=== PATIENT | male | born 1930 | race Caucasian/White ===

== ENCOUNTER 2017-07-31 11:44 | Inpatient (IN) | payer MEDICARE ==
[~2017-07-31] VITALS: Ht 172.7 cm; Wt 62.7 kg
--- NOTE | 2017-07-31 10:15 | NUR ---
Admission Note with Justification for Admission to [facility] Patient admitted to [facility] for protective oversight for emergency stabilization of acute psychiatric crisis. Pt admitted from: Hospital Mode of arrival: EMS Accompanied By: Family/EMS staff Precipitating behaviors that initiated intake and admission: [place]. pulled gun on . police involved Description of failure of out patient attempts at stabilization in previous setting list behavior and medication trials: Behaviors and assessment findings upon admission: restless. impulsive. compliant Plan: Admit for protective oversight for adjustment and stabilization of medications, behaviors and mood. Intense treatment regimen including groups, medication adjustments, therapy, consistent regimen for ADL's, self care, and sleep hygiene. Daily monitoring by Inpatient staff, Psychiatry, and Medical Physician.
[2017-07-31] MEDS ORDERED: METHYL SALICYLATE/MENTHOL TOPICAL OINTMENT 29GM TUBE. TP PRN (14:00)
[2017-07-31] MEDS ORDERED: MAG HYDROX/AL HYDROX/SIMETH 30 ML ORAL.SUSP PO PRN (14:00)
[2017-07-31] MEDS ORDERED: ACETAMINOPHEN 325 MG TABLET PO PRN (14:00)
[2017-07-31] MEDS ORDERED: MAGNESIUM HYDROXIDE 2,400 MG/30 ML ORAL.SUSP. PO PRN (14:00)
[2017-07-31 15:21] LABS: BASO % 0 % (0-3); EOS % 0 % (0-3); HEMATOCRIT 40.5 % (39.0-53.0); HEMOGLOBIN 13.5 g/dL (13.0-17.5); LYMPH # 0.4 x10^3/uL (1.0-4.8); LYMPH % 5 % (24-48); MEAN CORPUSCULAR HEMOGLOBIN 28 pg (25-35); MEAN CORPUSCULAR HGB CONC 33 g/dL (31-37); MEAN CORPUSCULAR VOLUME 84 fL (79-100); MONO # 0.4 x10^3/uL (0.0-1.1); MONO % 5 % (0-9); NEUT % 90 % (31-73); PLATELET COUNT 273 x10^3/uL (140-400); RED BLOOD COUNT 4.82 x10^6/uL (4.30-5.70); RED CELL DISTRIBUTION WIDTH 15.7 % (11.5-14.5); WHITE BLOOD COUNT 7.8 x10^3/uL (4.0-11.0)
[2017-07-31 15:28] LABS: ALBUMIN 3.4 g/dL (3.4-5.0); ALBUMIN/GLOBULIN RATIO 0.9 (1.0-1.7); CALCIUM 8.4 mg/dL (8.5-10.1); CREATININE 1.1 mg/dL (0.7-1.3); GFR 63.8; POTASSIUM 3.3 mmol/L (3.5-5.1); TOTAL BILIRUBIN 2.1 mg/dL (0.2-1.0); TOTAL PROTEIN 7.1 g/dL (6.4-8.2)
[2017-07-31 15:40] LABS: BILIRUBIN,URINE NEG (NEG); CLARITY,URINE CLEAR; COLOR,URINE YELLOW; GLUCOSE,URINE NEG (NEG); NITRITE,URINE NEG (NEG); UROBILINOGEN,URINE 0.2 mg/dL (0.2 mg/dL)
[2017-07-31 15:41] LABS: BACTERIA,URINE 0 /HPF (0-FEW); RBC,URINE RARE /HPF (0-2); SQUAMOUS EPITHELIAL CELL,UR OCC /LPF; WBC,URINE OCC /HPF (0-4)
--- NOTE | 2017-07-31 16:06 | EKG ---
[address] [address] Test Date: 2017-07-31 Test Time: 16:01:19 Pat Name: KVNG CLAY Department: Room: [address] [place] [address] Gender: M Reservations Specialist: : [id number] Requested By: GABRIEL BAI Order Number: [id number] Reading MD: Gian Koenig Measurements Intervals [place] Rate: 67 P: 90 SC: 168 QRS: 82 QRSD: 140 T: 74 QT: 436 QTc: 464 Interpretive Statements SINUS RHYTHM NON SPECIFIC INTRAVENTRICULAR BLOCK QRS(T) CONTOUR ABNORMALITY CONSIDER ANTEROSEPTAL MYOCARDIAL DAMAGE ABNORMAL ECG Electronically Signed On 08-09-2017 12:32:58 CDT by Gian Koenig
[2017-07-31] MEDS ORDERED: MAGN400T3 PO (16:08)
[2017-07-31] MEDS ORDERED: CARB1TAB2 PO (16:08)
[2017-07-31] MEDS ORDERED: ALPR0.25 PO (16:08)
[2017-07-31] MEDS ORDERED: CITA20TA9 PO (16:08)
[2017-07-31] MEDS ORDERED: carbidopa/levodopa PO (16:08)
[2017-07-31] MEDS ORDERED: QUET25TA5 PO (16:08)
[2017-07-31 16:22] VITALS: BP 152/63
[2017-07-31] MEDS ORDERED: ALPRAZolam 0.25 MG TABLET PO PRN (16:30)
--- NOTE | 2017-07-31 18:35 | NUR ---
pt up in wc for meal. unsteady on feet when ambulating with staff. has been drowsy.
[2017-07-31] MEDS: CARBIDOPA/LEVODOPA CR 50/200MG TABLET.SA PO SCH (22:09)
[2017-07-31] MEDS: QUEtiapine 25 MG TABLET. PO SCH (22:09)
--- NOTE | 2017-08-01 01:46 | NUR ---
Behavior Intervention Response and Plan: BIRP Note: Behavior: Assumed Care of patient, patient located in Day Room at shift change. Patient exhibited the following behavior Disorganized, Irritable, Drowsy. Brief assessment on rounds of vital signs, medication needs, lab studies, and pain. Treatment plan problems 1-4. Intervention: Patient assessed and the following interventions initiated safety checks 15 Minute Checks Personal Alarm in place , Medications , Nutrition. Response: After interactions and interventions patient responded in the following manner, Disorganized , Withdrawn ,Drowsy. Continue to assess behaviors and condition will continue to monitor throughout the shift as needed. Patient educated on ADL's, and hand hygiene. Plan: Continue to monitor Master Treatment Plan for patient's progress toward short term goals of Decreased Agitation, Decreased Anxiety, manager terminal goals to return to previous living setting vs placement. Continue to assess patient for changes in above assessment. Monitor for medication needs, pain, and safety concerns. Hourly rounding performed to ensure safe environment.
[2017-08-01 05:39] VITALS: BP 145/87
[2017-08-01] MEDS: CARBIDOPA/LEVODOPA CR 50/200MG TABLET.SA PO SCH ×3 (08:48→21:11)
[2017-08-01] MEDS: CITALOPRAM 10 MG TABLET. PO SCH (08:50)
[2017-08-01] MEDS: MAGNESIUM OXIDE 400 MG TABLET PO SCH (08:50)
--- NOTE | 2017-08-01 09:25 | PDOC ---
Exam Note: Elmo Note: Please also refer to the separate dictated note~for this date of service dictated separately.~Patient seen individually. Discussed the patient with Nursing staff reviewed the chart.~Reviewed interim history and current functioning. Reviewed vital signs,~Labs/ Radiology~and current medications noted below. Continue current treatment with the changes noted in the dictated addendum note. This is a late entry for July 31, 2017 Assessment: Vital Signs: VS - Last 72 Hours, by Label Date Time Temp Pulse Resp B/P (MAP) Pulse Ox O2 Delivery O2 Flow Rate FiO2 08/01/17 05:39 97.7 68 16 145/87 (106) 100 07/31/17 16:22 97.4 62 18 152/63 (92) 98 Vital Signs Date Time Temp Pulse Resp B/P (MAP) Pulse Ox O2 Delivery O2 Flow Rate FiO2 08/01/17 05:39 97.7 68 16 145/87 (106) 100 I&O Intake and Output 08/01/17 07:00 Intake Total 600 ml Balance 600 ml Intake Oral 600 ml # Bowel Movements 1 Labs: Laboratory Tests Test 07/31/17 15:00 White Blood Count 7.8 x10^3/uL (4.0-11.0) Red Blood Count 4.82 x10^6/uL (4.30-5.70) Hemoglobin 13.5 g/dL (13.0-17.5) Hematocrit 40.5 % (39.0-53.0) Mean Corpuscular Volume 84 fL (79-100) Mean Corpuscular Hemoglobin 28 pg (25-35) Mean Corpuscular Hemoglobin Concent 33 g/dL (31-37) Red Cell Distribution Width 15.7 % (11.5-14.5) H Platelet Count 273 x10^3/uL (140-400) Neutrophils (%) (Auto) 90 % (31-73) H Lymphocytes (%) (Auto) 5 % (24-48) L Monocytes (%) (Auto) 5 % (0-9) Eosinophils (%) (Auto) 0 % (0-3) Basophils (%) (Auto) 0 % (0-3) Neutrophils # (Auto) 7.0 x10^3uL (1.8-7.7) Lymphocytes # (Auto) 0.4 x10^3/uL (1.0-4.8) L Monocytes # (Auto) 0.4 x10^3/uL (0.0-1.1) Eosinophils # (Auto) 0.0 x10^3/uL (0.0-0.7) Basophils # (Auto) 0.0 x10^3/uL (0.0-0.2) Urine Collection Type Unknown Urine Color Yellow Urine Clarity Clear Urine pH 7.0 Urine Specific [place] 1.010 Urine Protein Neg (NEG-TRACE) Urine Glucose (UA) Neg mg/dL (NEG) Urine Ketones (Stick) Neg mg/dL (NEG) Urine Blood Trace (NEG) Urine Nitrite Neg (NEG) Urine Bilirubin Neg (NEG) Urine Urobilinogen Dipstick 0.2 mg/dL (0.2 mg/dL) Urine Leukocyte Esterase Neg (NEG) Urine RBC Rare /HPF (0-2) Urine WBC Occ /HPF (0-4) Urine Squamous Epithelial Cells Occ /LPF Urine Bacteria 0 /HPF (0-FEW) Sodium Level 135 mmol/L (136-145) L Potassium Level 3.3 mmol/L (3.5-5.1) L Chloride Level 99 mmol/L (98-107) Carbon Dioxide Level 27 mmol/L (21-32) Anion Gap 9 (6-14) Blood Urea Nitrogen 24 mg/dL (8-26) Creatinine 1.1 mg/dL (0.7-1.3) Estimated GFR (Cockcroft-Gault) 63.8 BUN/Creatinine Ratio 22 (6-20) H Glucose Level 107 mg/dL (70-99) H Calcium Level 8.4 mg/dL (8.5-10.1) L Magnesium Level 2.0 mg/dL (1.8-2.4) Total Bilirubin 2.1 mg/dL (0.2-1.0) H Aspartate Amino Transferase (AST) 13 U/L (15-37) L Alanine Aminotransferase (ALT) 9 U/L (16-63) L Alkaline Phosphatase 76 U/L (46-116) Total Protein 7.1 g/dL (6.4-8.2) Albumin 3.4 g/dL (3.4-5.0) Albumin/Globulin Ratio 0.9 (1.0-1.7) L Current Medications: Meds: Current Medications Acetaminophen (Tylenol) 650 mg PRN Q6HRS PRN PO PAIN / TEMP; Start 07/31/17 at 14:00 Multi-Ingredient Ointment (Analgesic [place]) 1 avila PRN QID PRN TP MUSCLE PAIN; Start 07/31/17 at 14:00 Al Hydroxide/Mg Hydroxide (Mylanta Plus Xs) 15 ml PRN AFTMEALHC PRN PO DYSPEPSIA; Start 07/31/17 at 14:00 Magnesium Hydroxide (Milk Of Magnesia) 2,400 mg PRN QHS PRN PO CONSTIPATION; Start 07/31/17 at 14:00 Carbidopa/Levodopa (Sinemet 25/100) 1 tab PRN QHS PRN PO dystonia; Start at 16:15 Citalopram Hydrobromide (CeleXA) 30 mg DAILY PO Last administered on 08/01/17at 08:50; Start 08/01/17 at 09:00 Alprazolam (Xanax) 0.25 mg PRN QID PRN PO ANXIETY / AGITATION; Start 07/31/17 at 16:30 Magnesium Oxide (Magnesium Oxide) 400 mg DAILY PO Last administered on at 08:50; Start 08/01/17 at 09:00 Quetiapine Fumarate (SEROquel) 25 mg QHS PO Last administered on 07/31/17at 22:09 ; Start 07/31/17 at 21:00 Carbidopa/Levodopa (Sinemet Cr) 2.5 tab.sa TID PO Last administered on at 08:48; Start 07/31/17 at 21:00 Olanzapine (ZyPREXA ZYDIS) 2.5 mg PRN Q2HR PRN PO PSYCHOSIS; Start 07/31/17 at 16:30 Active Scripts Active Reported Magnesium Oxide 400 Mg Tablet 400 Mg PO DAILY Sinemet 25-100 Mg Tablet (Carbidopa/Levodopa) 1 Each Tablet 1 Tab PO PRN QHS PRN Seroquel (Quetiapine Fumarate) 25 Mg Tablet 25 Mg PO HS Xanax (Alprazolam) 0.25 Mg Tablet 0.25 Mg PO PRN QID PRN Celexa (Citalopram Hydrobromide) 20 Mg Tablet 30 Mg PO DAILY [carbidopa/levodopa] 50-200 Mg PO TID I have reviewed the current psychotropics carefully including drug interactions. Risk benefit ratio favors no change other than as noted in my dictated progress note. 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
[2017-08-01 10:07] LABS: THYROID STIM HORMONE (TSH) 3.23 uIU/mL (0.358-3.740)
--- NOTE | 2017-08-01 10:51 | NUR ---
Behavior Intervention Response and Plan: BIRP Note: Behavior: Assumed Care of patient, patient located in Dining Room at shift change. Patient exhibited the following behavior Calm, Withdrawn, Compliant. Brief assessment on rounds of vital signs, medication needs, lab studies, and pain. Treatment plan problems . Intervention: Patient assessed and the following interventions initiated safety checks 15 Minute Checks Cognitive Assessment , Head to toe Assessment , Medications. Response: After interactions and interventions patient responded in the following manner, Disorganized , Calm ,Compliant. Continue to assess behaviors and condition will continue to monitor throughout the shift as needed. Patient educated on ADL's, and hand hygiene. Plan: Continue to monitor Master Treatment Plan for patient's progress toward short term goals of Decreased Agitation, Decreased Aggression, care home goals to return to previous living setting vs placement. Continue to assess patient for changes in above assessment. Monitor for medication needs, pain, and safety concerns. Hourly rounding performed to ensure safe environment.
[2017-08-01 12:11] LABS: THYROXINE 6.7 ug/dL (4.5-12.0)
[2017-08-01 16:33] VITALS: BP 90/62
--- NOTE | 2017-08-01 18:53 | NUR ---
pt up with walker today. more steady on his feet. more alert. here to visit. visit went well. does not remember what brought him here. compliant with meds and cares.
--- NOTE | 2017-08-01 20:23 | PDOC ---
Exam Note: Elmo Note: Late entry for date of service July 31, 2017. Please also refer to the separate dictated note~for this date of service dictated separately.~Patient seen individually. Discussed the patient with Nursing staff reviewed the chart.~ Reviewed interim history and current functioning. Reviewed vital signs,~Labs/ Radiology~and current medications noted below. Continue current treatment with the changes noted in the dictated addendum note Assessment: Vital Signs: VS - Last 72 Hours, by Label Date Time Temp Pulse Resp B/P (MAP) Pulse Ox O2 Delivery O2 Flow Rate FiO2 08/01/17 16:33 98.1 66 18 90/62 (71) 97 08/01/17 05:39 97.7 68 16 145/87 (106) 100 07/31/17 16:22 97.4 62 18 152/63 (92) 98 Vital Signs Date Time Temp Pulse Resp B/P (MAP) Pulse Ox O2 Delivery O2 Flow Rate FiO2 08/01/17 16:33 98.1 66 18 90/62 (71) 97 I&O Intake and Output 08/01/17 07:00 Intake Total 600 ml Balance 600 ml Intake Oral 600 ml # Bowel Movements 1 Current Medications: Meds: Current Medications Acetaminophen (Tylenol) 650 mg PRN Q6HRS PRN PO PAIN / TEMP; Start 07/31/17 at 14:00 Multi-Ingredient Ointment (Analgesic [place]) 1 avila PRN QID PRN TP MUSCLE PAIN; Start 07/31/17 at 14:00 Al Hydroxide/Mg Hydroxide (Mylanta Plus Xs) 15 ml PRN AFTMEALHC PRN PO DYSPEPSIA; Start 07/31/17 at 14:00 Magnesium Hydroxide (Milk Of Magnesia) 2,400 mg PRN QHS PRN PO CONSTIPATION; Start 07/31/17 at 14:00 Carbidopa/Levodopa (Sinemet 25/100) 1 tab PRN QHS PRN PO dystonia; Start at 16:15 Citalopram Hydrobromide (CeleXA) 30 mg DAILY PO Last administered on 08/01/17at 08:50; Start 08/01/17 at 09:00 Alprazolam (Xanax) 0.25 mg PRN QID PRN PO ANXIETY / AGITATION; Start 07/31/17 at 16:30 Magnesium Oxide (Magnesium Oxide) 400 mg DAILY PO Last administered on at 08:50; Start 08/01/17 at 09:00 Quetiapine Fumarate (SEROquel) 25 mg QHS PO Last administered on 07/31/17at 22:09 ; Start 07/31/17 at 21:00 Carbidopa/Levodopa (Sinemet Cr) 2.5 tab.sa TID PO Last administered on at 14:00; Start 07/31/17 at 21:00 Olanzapine (ZyPREXA ZYDIS) 2.5 mg PRN Q2HR PRN PO PSYCHOSIS; Start 07/31/17 at 16:30 Active Scripts Active Reported Magnesium Oxide 400 Mg Tablet 400 Mg PO DAILY Sinemet 25-100 Mg Tablet (Carbidopa/Levodopa) 1 Each Tablet 1 Tab PO PRN QHS PRN Seroquel (Quetiapine Fumarate) 25 Mg Tablet 25 Mg PO HS Xanax (Alprazolam) 0.25 Mg Tablet 0.25 Mg PO PRN QID PRN Celexa (Citalopram Hydrobromide) 20 Mg Tablet 30 Mg PO DAILY [carbidopa/levodopa] 50-200 Mg PO TID I have reviewed the current psychotropics carefully including drug interactions. Risk benefit ratio favors no change other than as noted in my dictated progress note. Diagnosis: Problems: (1) Anxiety disorder (2) Dementia in Alzheimer's disease with delusions (3) Dementia in Alzheimer's disease with depression (4) Dementia, vascular, with delusions (5) Dementia, vascular, with depression (6) Impulse control disorder GABRIEL BAI MD Aug 01, 2017 20:23
[2017-08-01] MEDS: QUEtiapine 25 MG TABLET. PO SCH (21:11)
--- NOTE | 2017-08-01 21:44 | NUR ---
Patient in bed right after shift change. Woke patient up for HS medications, patient was able to sit up and take them. Patient denies pain but did state that he was cold. Provided additional blanket and covered patient up.
--- NOTE | 2017-08-02 00:10 | HP ---
ADMIT DATE: 07/31/2017 PSYCHIATRIC ADMISSION HISTORY AND EVALUATION This is a late entry for 07/31/2017, covers the elements not covered in my initial note of 07/31/2017. The patient is admitted by his , who is his DPOA. I met with the patient on the evening of 07/31/2017, previously discussed with nursing staff several times to review history and information from Emergency Room visit. The patient presented from home with his with worsening confusion, paranoia, and after he pulled a loaded pistol on her. The police were called. He was brought to the Emergency Room, deemed to have possible Alzheimer's versus Lewy body dementia within the context of his Parkinson's and referred for inpatient psychiatric stabilization. CHIEF COMPLAINT: "No." HISTORY OF PRESENT ILLNESS: The patient has a history of dementia, multifactorial, possibly secondary to Parkinson's, Lewy body, Alzheimer's and has been living at home with his . Circumstances prompting admission were as noted above after he pulled a loaded gun on his and the police were called and took him to the Emergency Room. has attempted to care for him in the home despite all odds, but this was the last straw and safety was the significant issue prompting this referral. He has had some sleep and appetite changes. No clear history of bipolar disorder or suicidal ideation. PAST PSYCHIATRIC HISTORY: As above. While in the Emergency Room, he was given Haldol on account of marked irritability, mood lability, paranoia. MEDICAL HISTORY: Parkinson disease, hyponatremia, history of rectal bleed, chronic constipation, hypertension. ACCU-CHEKS: None. DRUG ALLERGIES: Negative. CODE STATUS: DNI. Takes his medications whole. CURRENT PSYCHOTROPICS: Seroquel 25 mg at bedtime, Xanax 0.25 mg q.i.d. p.r.n., Zyprexa was added by me p.r.n. at admission for psychosis, aggression given his marked on going irritability. FAMILY HISTORY: Noncontributory. SOCIAL HISTORY: He lives at home with his . No alcohol or drug abuse, physical, sexual or elder abuse history is noted. Not known to be a perpetrator. REACTION TO HOSPITALIZATION: The patient is oblivious of this. ASSETS: Supportive family/. MENTAL STATUS EXAMINATION: The patient was seen individually on the evening of 07/31/2017. He is oriented to himself, did not respond when I introduced myself and referred to him by his name. Insight, judgment, recent and remote memory, attention, concentration, fund of knowledge poor, consistent with his diagnosis. Unable to do serial sevens, remembered 0 of 3 objects at 3 minutes. IMPRESSION: Major neurocognitive disorder, multifactorial, possibly secondary to Parkinson's, Lewy body, Alzheimer's with delusion; depression, behavioral disturbance; anxiety disorder, unspecified; impulse control disorder, unspecified. Rest as above. PLAN: Admit to Geropsychiatry Unit at [facility]. I will see the patient daily individually from a psychiatric standpoint. Medical followup per Dr. Morales/Dr Merino. Continue the patient on his current psychotropics, start Zyprexa p.r.n. Consider the addition of Exelon patch and Namenda given the possibility of Lewy body dementia. May consider having a CT head done, but we will determine that post the baseline assessment. ESTIMATED LENGTH OF STAY: 10-12 days. DISCHARGE DISPOSITION: Perhaps to a nursing facility. MAN Radha BAI MD DR: TATIANA/ji JOB#: [id number] / [id number]
[2017-08-02 02:07] LABS: HEMOGLOBIN A1C 5.3 % (4.8-5.6)
--- NOTE | 2017-08-02 05:30 | NUR ---
Patient has been restless and up and down since 0200. Somewhat redirectable. Was incontinent of stool and had to be showered. Roommate has been irritated by bed alarm going off.
[2017-08-02 06:25] VITALS: BP 143/70
[2017-08-02] MEDS: CARBIDOPA/LEVODOPA CR 50/200MG TABLET.SA PO SCH ×3 (08:23→19:55)
[2017-08-02] MEDS: MAGNESIUM OXIDE 400 MG TABLET PO SCH (08:23)
[2017-08-02] MEDS: CITALOPRAM 10 MG TABLET. PO SCH (08:24)
[2017-08-02] MEDS: RIVASTIGMINE 4.6MG PATCH. TD SCH (08:25)
--- NOTE | 2017-08-02 11:00 | NUR ---
Psychosocial assessment: Pt was raised in [place], [place] with a sister and half brother. Per pt pt became very ill when his appendix burst at the age of 13. Per his pt almost did not survive. Pt was transferred to another hospital where they used antibiotics on him(per this was a new treatment at the time). Pt only went to the 8th grade. 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 Pt was in 1952 and had 3 children, his youngest daughter . Per pt he is very hard of hearing, but can read lips. Pt states she is planning on him returning home with her.
--- NOTE | 2017-08-02 13:56 | CONS ---
DATE OF CONSULTATION: 08/01/2017 REASON FOR CONSULTATION: Medical management. HISTORY OF PRESENT ILLNESS: The patient is an 86-year-old male patient, who was admitted yesterday on account of being irritated with his , paranoid, pulled a loaded pistol on her and the police was involved. [facility]. He is known to have dementia as well as Parkinson's disease. On questioning him today, he did complain of difficulty swallowing, although he was not specific whether it is more to solids or liquids. His stated that he has what seems to be dystonia for which she gives him extra dose of Sinemet; however, she cuts Seroquel to 25 mg only as he has what she describes as apneic episode. She also stated that he has vivid dreams at night time. Apart from complaint of dysphagia the patient denied any other complaint. PAST SURGICAL HISTORY: Unobtainable. PAST MEDICAL HISTORY: Known to have Parkinson's disease, hyponatremia, history of rectal bleed, constipation, hypertension. PAST PSYCHIATRIC HISTORY: Significant for dementia. ALLERGIES: He has no known drug allergies. MEDICATIONS: He is currently on following medications: He is on analgesic balm 1 application 4 times a day for muscle pain, Tylenol 650 mg every 6 hours, citalopram hydrobromide 30 mg daily, olanzapine 2.5 mg every 2 hours, quetiapine fumarate 25 mg once a day, alprazolam 0.25 mg 4 times a day as needed, carbidopa/levodopa 25/100 mg 1 tablet as needed at bedtime for acute dystonia, carbidopa/levodopa extended release 50/200 takes 2.5 tablet 3 times a day. He is also on Mylanta 15 mL after meals and as needed, magnesium hydroxide for milk of magnesia 30 mL p.o. daily p.r.n. for constipation. REVIEW OF SYSTEMS: Unobtainable. PHYSICAL EXAMINATION: GENERAL: When I saw him this afternoon, he was sitting comfortably in his chair, eating his dinner. He was pale, but no jaundice or cyanosis. No lymphadenopathy, no thyromegaly. No jugular venous distention. No limb edema. VITAL SIGNS: His heart rate was 66, blood pressure was 190/62, temperature was 98.1, respiratory rate was 18 and oxygen saturation was 97%. HEAD, EYES, EARS, NOSE AND THROAT: Showed normocephalic, atraumatic. NECK: Supple. HEART: Showed normal first and second sounds. No gallop, rub or murmur. CHEST: Clear to auscultation. No crepitation or rhonchi. ABDOMEN: Distended, soft, nontender. NEUROLOGIC: He was awake, alert. 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 All his cranial nerves are intact. EXTREMITIES: He moves extremities without difficulty; however, he has parkinsonian features with masked face and tremor with shuffling gait. LABORATORY DATA: Showed that his serum sodium was 135, potassium 3.3, chloride 99, bicarbonate 27, anion gap of 9, BUN 24, creatinine 1.1, estimated GFR was 63 mL per minute. His glucose was 107. Calcium was 8.4, magnesium 2. Serum iron was 66, TIBC was 253 and percent saturation was only 26%. His total bilirubin is high at 2.1. However, AST, ALT, alkaline phosphatase were normal. His total protein was 7.1, albumin 3.4. Serum triglycerides 57, total cholesterol 182, LDL cholesterol 111, VLDL was 11, and HDL cholesterol was 3. His TSH was 3.23; however, total T4, free T4 and total T3 were all normal. Urinalysis was unremarkable. His white cell count was 7800, hemoglobin 13.5, hematocrit 40, MCV 84 and platelet count 273,000. IMPRESSION: In summary, this is an 86-year-old male patient, who was admitted on the account of being agitated on his , paranoid, pulled a loaded pistol on her, police were involved. From medical point of view, he seemed to be generally stable. I will consult Dr. Oquendo to evaluate whether he needs adjustment of . Otherwise, he seems to be within acceptable range. Thank you, for allowing me to participate in the care of this patient. RHEA FRANZ MD DR: TRUPTI/ji JOB#: [id number] / [id number]
--- NOTE | 2017-08-02 14:24 | NUR ---
Behavior Intervention Response and Plan: BIRP Note: Behavior: Assumed Care of patient, patient located in Hallway at shift change. Patient exhibited the following behavior Wandering, Exit Seeking, Restless. Brief assessment on rounds of vital signs, medication needs, lab studies, and pain. Treatment plan problems 1-2. Intervention: Patient assessed and the following interventions initiated safety checks 15 Minute Checks Cognitive Assessment , Head to toe Assessment , Medications. Response: After interactions and interventions patient responded in the following manner, Wandering , Exit Seeking ,Restless. Continue to assess behaviors and condition will continue to monitor throughout the shift as needed. Patient educated on ADL's, and hand hygiene. Plan: Continue to monitor Master Treatment Plan for patient's progress toward short term goals of No harm To self/ others, No harm To self/ others, salvage determiner goals to return to previous living setting vs placement. Continue to assess patient for changes in above assessment. Monitor for medication needs, pain, and safety concerns. Hourly rounding performed to ensure safe environment.
[2017-08-02] MEDS: CARBIDOPA/LEVODOPA 25/100MG TABLET PO PRN ×2 (14:48→14:49)
[2017-08-02 16:06] VITALS: BP 124/64
[2017-08-02] MEDS: QUEtiapine 25 MG TABLET. PO SCH (19:55)
--- NOTE | 2017-08-02 20:46 | PDOC ---
Exam Note: Elmo Note: Please also refer to the separate dictated note~for this date of service dictated separately.~Patient seen individually. Discussed the patient with Nursing staff reviewed the chart.~Reviewed interim history and current functioning. Reviewed vital signs,~Labs/ Radiology~and current medications noted below. Continue current treatment with the changes noted in the dictated addendum note Assessment: Vital Signs: Vital Signs Date Time Temp Pulse Resp B/P (MAP) Pulse Ox O2 Delivery O2 Flow Rate FiO2 08/02/17 16:06 98.2 64 18 124/64 (84) 97 I&O Intake and Output 08/02/17 07:00 Intake Total 680 ml Balance 680 ml Intake Oral 680 ml # Bowel Movements 1 Current Medications: Meds: Current Medications Acetaminophen (Tylenol) 650 mg PRN Q6HRS PRN PO PAIN / TEMP; Start 07/31/17 at 14:00 Multi-Ingredient Ointment (Analgesic [place]) 1 avila PRN QID PRN TP MUSCLE PAIN; Start 07/31/17 at 14:00 Al Hydroxide/Mg Hydroxide (Mylanta Plus Xs) 15 ml PRN AFTMEALHC PRN PO DYSPEPSIA; Start 07/31/17 at 14:00 Magnesium Hydroxide (Milk Of Magnesia) 2,400 mg PRN QHS PRN PO CONSTIPATION; Start 07/31/17 at 14:00 Carbidopa/Levodopa (Sinemet 25/100) 1 tab PRN QHS PRN PO dystonia Last administered on 08/02/17at 14:48; Start 07/31/17 at 16:15 Citalopram Hydrobromide (CeleXA) 30 mg DAILY PO Last administered on 08/02/17at 08:24; Start 08/01/17 at 09:00; Stop 08/02/17 at 18:13; Status DC Alprazolam (Xanax) 0.25 mg PRN QID PRN PO ANXIETY / AGITATION; Start 07/31/17 at 16:30 Magnesium Oxide (Magnesium Oxide) 400 mg DAILY PO Last administered on at 08:23; Start 08/01/17 at 09:00 Quetiapine Fumarate (SEROquel) 25 mg QHS PO Last administered on 08/02/17at 19: 55; Start 07/31/17 at 21:00 Carbidopa/Levodopa (Sinemet Cr) 2.5 tab.sa TID PO Last administered on at 19:55; Start 07/31/17 at 21:00 Olanzapine (ZyPREXA ZYDIS) 2.5 mg PRN Q2HR PRN PO PSYCHOSIS Last administered on 08/02/17at 12:04; Start 07/31/17 at 16:30 Rivastigmine (Exelon) 1 patch DAILY TD Last administered on 08/02/17at 08:25; Start 08/02/17 at 09:00; Stop 08/04/17 at 23:00 Rivastigmine (Exelon) 1 patch DAILY TD ; Start 08/05/17 at 09:00 Sertraline HCl (Zoloft) 50 mg DAILY PO ; Start 08/03/17 at 09:00 Active Scripts Active Reported Magnesium Oxide 400 Mg Tablet 400 Mg PO DAILY Sinemet 25-100 Mg Tablet (Carbidopa/Levodopa) 1 Each Tablet 1 Tab PO PRN QHS PRN Seroquel (Quetiapine Fumarate) 25 Mg Tablet 25 Mg PO HS Xanax (Alprazolam) 0.25 Mg Tablet 0.25 Mg PO PRN QID PRN Celexa (Citalopram Hydrobromide) 20 Mg Tablet 30 Mg PO DAILY [carbidopa/levodopa] 50-200 Mg PO TID I have reviewed the current psychotropics carefully including drug interactions. Risk benefit ratio favors no change other than as noted in my dictated progress note. Diagnosis: Problems: (1) Anxiety disorder (2) Dementia in Alzheimer's disease with delusions (3) Dementia in Alzheimer's disease with depression (4) Dementia, vascular, with delusions (5) Dementia, vascular, with depression (6) Impulse control disorder GABRIEL BAI MD Aug 02, 2017 20:46
--- NOTE | 2017-08-03 02:04 | PN ---
DATE: 08/01/2017 PSYCHIATRIC PROGRESS NOTE This is a late entry for 08/01/2017, covers elements not covered in my initial note. SUBJECTIVE: I met with the patient in the evening. Overall, the patient remains confused, anxious, restless, seems to have rather vivid dreams per nursing report. We will have Neurology consult with Dr. Oquendo since he may have suggestions of Lewy body dementia. This is for a Neurology consult. REVIEW OF SYSTEMS: No CV, , pulmonary, eye, ENT system symptoms on review. Reliability poor. MENTAL STATUS EXAM: Oriented to himself. Insight, judgment, recent and remote memory, attention, concentration, fund of knowledge poor, consistent with his diagnosis from initial note. IMPRESSION: Major neurocognitive disorder, possibly Lewy body with delusion, depression, behavioral disturbance. Rest unchanged. PLAN: Start Exelon patch 4.6 mg a day for 3 days, then 9.5 mg a day. Maintain Celexa 30 mg a day, Seroquel 25 mg at bedtime, Zyprexa, and Xanax p.r.n. MAN Radha BAI MD DR: TATIANA/ji JOB#: [id number] / [id number]
[2017-08-03 05:50] VITALS: BP 145/81
[2017-08-03] MEDS ORDERED: SERTRALINE 50 MG TABLET. PO SCH (09:00)
[2017-08-03] MEDS: CARBIDOPA/LEVODOPA CR 50/200MG TABLET.SA PO SCH ×3 (09:14→20:47)
[2017-08-03] MEDS: RIVASTIGMINE 4.6MG PATCH. TD SCH (09:14)
[2017-08-03] MEDS: MAGNESIUM OXIDE 400 MG TABLET PO SCH (09:14)
--- NOTE | 2017-08-03 13:15 | NUR ---
GUICHO met with pt , she states her visit was good and feels that she will be able to take him home and care for him on discharge. Pt stated that she would like to talk with Dr. Powell and also stated she told Nursing staff she did not want a medication change without Dr. Powell calling her and discussing it with her prior to the change.
--- NOTE | 2017-08-03 15:20 | NUR ---
Activity Therapy Assessments: Patient was sitting down and was aware and alert during the assessment. Patient was unable to communicate and express himself completely on his own. To communicate patient will talk very low and sometimes he mumbles. Patient uses a walker to ambulate and is hard at earing in his right ear and hears better with the left ear. Patient did not know his age, location, but was able to remember some family from his past. Patient will need help with most to all ADLs. Initial Treatment Goals: To engage in at least 2 groups before discharge that will increase his time management and recreation education.
[2017-08-03 16:45] VITALS: BP 101/58
--- NOTE | 2017-08-03 17:52 | NUR ---
visited today, wanted to see a list of patients meds, list provided she does not want pt. on zoloft wants him back on celexa due to zoloft making him aggressive. Dr Powell here new orders recieved. patient very aggressive this evening throwing his walker, hitting at the staff refusing to cooperate with the program on the unit. patient escorted to the secured [place] for his safety.
--- NOTE | 2017-08-03 20:00 | NUR ---
Behavior Intervention Response and Plan: BIRP Note: Behavior: Assumed Care of patient, patient located in Patient Room at shift change. Patient exhibited the following behavior Calm, Disorganized, Drowsy. Brief assessment on rounds of vital signs, medication needs, lab studies, and pain. Treatment plan problems . Intervention: Patient assessed and the following interventions initiated safety checks 15 Minute Checks Cognitive Assessment , Head to toe Assessment , Medications. Response: After interactions and interventions patient responded in the following manner, Cooperative , Disorganized ,Compliant. Continue to assess behaviors and condition will continue to monitor throughout the shift as needed. Patient educated on ADL's, and hand hygiene. Plan: Continue to monitor Master Treatment Plan for patient's progress toward short term goals of Decreased Agitation, No harm To self/ others, parts counterman goals to return to previous living setting vs placement. Continue to assess patient for changes in above assessment. Monitor for medication needs, pain, and safety concerns. Hourly rounding performed to ensure safe environment.
--- NOTE | 2017-08-03 20:09 | PDOC ---
Exam Note: Elmo Note: Please also refer to the separate dictated note~for this date of service dictated separately.~Patient seen individually. Discussed the patient with Nursing staff reviewed the chart.~Reviewed interim history and current functioning. Reviewed vital signs,~Labs/ Radiology~and current medications noted below. Continue current treatment with the changes noted in the dictated addendum note Assessment: Vital Signs: Vital Signs Date Time Temp Pulse Resp B/P (MAP) Pulse Ox O2 Delivery O2 Flow Rate FiO2 08/03/17 16:45 96.9 61 18 101/58 (72) 96 Room Air I&O Intake and Output 08/03/17 07:00 Intake Total 600 ml Balance 600 ml Intake Oral 600 ml Current Medications: Meds: Current Medications Acetaminophen (Tylenol) 650 mg PRN Q6HRS PRN PO PAIN / TEMP; Start 07/31/17 at 14:00 Multi-Ingredient Ointment (Analgesic [place]) 1 avila PRN QID PRN TP MUSCLE PAIN; Start 07/31/17 at 14:00 Al Hydroxide/Mg Hydroxide (Mylanta Plus Xs) 15 ml PRN AFTMEALHC PRN PO DYSPEPSIA; Start 07/31/17 at 14:00 Magnesium Hydroxide (Milk Of Magnesia) 2,400 mg PRN QHS PRN PO CONSTIPATION; Start 07/31/17 at 14:00 Carbidopa/Levodopa (Sinemet 25/100) 1 tab PRN QHS PRN PO dystonia Last administered on 08/02/17at 14:48; Start 07/31/17 at 16:15 Citalopram Hydrobromide (CeleXA) 30 mg DAILY PO Last administered on 08/02/17at 08:24; Start 08/01/17 at 09:00; Stop 08/02/17 at 18:13; Status DC Alprazolam (Xanax) 0.25 mg PRN QID PRN PO ANXIETY / AGITATION; Start 07/31/17 at 16:30 Magnesium Oxide (Magnesium Oxide) 400 mg DAILY PO Last administered on at 09:14; Start 08/01/17 at 09:00 Quetiapine Fumarate (SEROquel) 25 mg QHS PO Last administered on 08/02/17at 19: 55; Start 07/31/17 at 21:00 Carbidopa/Levodopa (Sinemet Cr) 2.5 tab.sa TID PO Last administered on at 14:00; Start 07/31/17 at 21:00 Olanzapine (ZyPREXA ZYDIS) 2.5 mg PRN Q2HR PRN PO PSYCHOSIS Last administered on 08/03/17at 17:16; Start 07/31/17 at 16:30 Rivastigmine (Exelon) 1 patch DAILY TD Last administered on 08/03/17at 09:14; Start 08/02/17 at 09:00; Stop 08/04/17 at 23:00 Rivastigmine (Exelon) 1 patch DAILY TD ; Start 08/05/17 at 09:00 Sertraline HCl (Zoloft) 50 mg DAILY PO Last administered on 08/03/17at 09:15; Start 08/03/17 at 09:00; Stop 08/03/17 at 17:53; Status DC Citalopram Hydrobromide (CeleXA) 30 mg DAILY PO ; Start 08/04/17 at 09:00 Active Scripts Active Reported Magnesium Oxide 400 Mg Tablet 400 Mg PO DAILY Sinemet 25-100 Mg Tablet (Carbidopa/Levodopa) 1 Each Tablet 1 Tab PO PRN QHS PRN Seroquel (Quetiapine Fumarate) 25 Mg Tablet 25 Mg PO HS Xanax (Alprazolam) 0.25 Mg Tablet 0.25 Mg PO PRN QID PRN Celexa (Citalopram Hydrobromide) 20 Mg Tablet 30 Mg PO DAILY [carbidopa/levodopa] 50-200 Mg PO TID I have reviewed the current psychotropics carefully including drug interactions. Risk benefit ratio favors no change other than as noted in my dictated progress note. Diagnosis: Problems: (1) Anxiety disorder (2) Dementia in Alzheimer's disease with delusions (3) Dementia in Alzheimer's disease with depression (4) Dementia, vascular, with delusions (5) Dementia, vascular, with depression (6) Impulse control disorder GABRIEL BAI MD Aug 03, 2017 20:09
[2017-08-03] MEDS: QUEtiapine 25 MG TABLET. PO SCH (20:48)
[2017-08-03] MEDS: CITALOPRAM 10 MG TABLET. PO SCH (21:05)
--- NOTE | 2017-08-03 23:48 | PN ---
DATE: 08/02/2017 This is a late entry of 08/02/2017 covers elements not covered in my initial note. SUBJECTIVE: I met with the patient in the evening. The patient slept 4-1/4 hours. The patient remains quite confused, oriented x 1. He has been walking up and down the hallway, somewhat paranoid, irritable at times, but redirectable. REVIEW OF SYSTEMS: No CV, , pulmonary, eye, ENT system symptoms on review. Reliability poor. MENTAL STATUS EXAM: Oriented to himself. Insight, judgment, recent and remote memory, attention, concentration, fund of knowledge poor, consistent with his diagnosis from initial note. IMPRESSION: Major neurocognitive disorder, Alzheimer, vascular with delusion, depression, behavioral disturbance. Rest unchanged. PLAN: Continue psychotropics. Change the Celexa to Zoloft 50 mg a day for his mood and anxiety symptoms. Continue Seroquel 25 mg at bedtime, Xanax p.r.n., Zyprexa p.r.n., Exelon patch increasing gradually to 9.5 mg a day on 08/05/2017. MAN Radha BAI MD DR: TATIANA/ji JOB#: [id number] / [id number]
--- NOTE | 2017-08-04 01:43 | NUR ---
Behavior Intervention Response and Plan: BIRP Note: Behavior: Assumed Care of patient, patient located in Day Room at shift change. Patient exhibited the following behavior Sleeping, Drowsy, Compliant. Brief assessment on rounds of vital signs, medication needs, lab studies, and pain. Treatment plan problems . Intervention: Patient assessed and the following interventions initiated safety checks 15 Minute Checks Cognitive Assessment , Head to toe Assessment , Medications. Response: After interactions and interventions patient responded in the following manner, Disorganized , Drowsy ,Calm. Continue to assess behaviors and condition will continue to monitor throughout the shift as needed. Patient educated on ADL's, and hand hygiene. Plan: Continue to monitor Master Treatment Plan for patient's progress toward short term goals of Decreased Agitation, Medication Compliance, intermediate accountant goals to return to previous living setting vs placement. Continue to assess patient for changes in above assessment. Monitor for medication needs, pain, and safety concerns. Hourly rounding performed to ensure safe environment.
[2017-08-04 06:13] VITALS: BP 160/87
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
[2017-08-04] MEDS: CARBIDOPA/LEVODOPA CR 50/200MG TABLET.SA PO SCH ×4 (08:33→14:30)
[2017-08-04] MEDS: MAGNESIUM OXIDE 400 MG TABLET PO SCH (08:33)
[2017-08-04] MEDS: RIVASTIGMINE 4.6MG PATCH. TD SCH (08:34)
[2017-08-04] MEDS ORDERED: CITALOPRAM 10 MG TABLET. PO ONE (09:00)
--- NOTE | 2017-08-04 10:58 | NUR ---
SW reviewed pt insurance information pt has Medicare primary per Facesheet, intake, and [employer].
--- NOTE | 2017-08-04 11:57 | NUR ---
Patient has been asking about his , where she is, etc. He is also requesting frequent toileting and then not going when he is taken to the bathroom.
--- NOTE | 2017-08-04 13:44 | NUR ---
Patient asking to urinate often but does not go every time he asks. This is new behavior for him. Will obtain Urine sample and culture if indicated.
--- NOTE | 2017-08-04 15:00 | NUR ---
WEEKLY THERAPEUTIC RECREATION NOTE Date of Admission: 07/31/2017 Date of AT Assessment: 08/03/2017 Goal aimed: Increase his time management and recreation education. Initial goal: To engage in at least 2 groups before discharge Weekly progress towards goal: Did not achieve Group participation level: Zero Behaviors observed: difficult to engage, needs 1:1, little interest, difficulty expressing needs Plan: No change to plan.
--- NOTE | 2017-08-04 15:29 | NUR ---
Patient became increasingly agitated in day room and threw drink on CARD SERVICES SPECIALIST. Began yelling about "calling the facer operator" and causing others to become agitated. Re-directed to table, failed intervention. Given PRN zydis per order for agitation/psychosis.
--- NOTE | 2017-08-04 16:25 | NUR ---
Patient refused 1400 carbidoba/levodopa despite being offered it multiple times. Patient remains very agitated despite PRN zyprexa given at 1530. Patient refused vital signs and was combative with staff at that time also. Patient continues to yell and curse at staff and peers. Patient in day room being monitored by staff.
--- NOTE | 2017-08-04 20:55 | PDOC ---
Exam Note: Elmo Note: Please also refer to the separate dictated note~for this date of service dictated separately.~Patient seen individually. Discussed the patient with Nursing staff reviewed the chart.~Reviewed interim history and current functioning. Reviewed vital signs,~Labs/ Radiology~and current medications noted below. Continue current treatment with the changes noted in the dictated addendum note Assessment: Vital Signs: Vital Signs Date Time Temp Pulse Resp B/P (MAP) Pulse Ox O2 Delivery O2 Flow Rate FiO2 08/04/17 06:13 98.5 84 20 160/87 (111) 100 08/03/17 16:45 Room Air I&O Intake and Output 08/04/17 07:00 Intake Total 240 ml Balance 240 ml Intake Oral 240 ml # Bowel Movements 1 Current Medications: Meds: Current Medications Acetaminophen (Tylenol) 650 mg PRN Q6HRS PRN PO PAIN / TEMP; Start 07/31/17 at 14:00 Multi-Ingredient Ointment (Analgesic [place]) 1 avila PRN QID PRN TP MUSCLE PAIN; Start 07/31/17 at 14:00 Al Hydroxide/Mg Hydroxide (Mylanta Plus Xs) 15 ml PRN AFTMEALHC PRN PO DYSPEPSIA; Start 07/31/17 at 14:00 Magnesium Hydroxide (Milk Of Magnesia) 2,400 mg PRN QHS PRN PO CONSTIPATION; Start 07/31/17 at 14:00 Carbidopa/Levodopa (Sinemet 25/100) 1 tab PRN QHS PRN PO dystonia Last administered on 08/02/17at 14:48; Start 07/31/17 at 16:15 Citalopram Hydrobromide (CeleXA) 30 mg DAILY PO Last administered on 08/02/17at 08:24; Start 08/01/17 at 09:00; Stop 08/02/17 at 18:13; Status DC Alprazolam (Xanax) 0.25 mg PRN QID PRN PO ANXIETY / AGITATION; Start 07/31/17 at 16:30 Magnesium Oxide (Magnesium Oxide) 400 mg DAILY PO Last administered on at 08:33; Start 08/01/17 at 09:00 Quetiapine Fumarate (SEROquel) 25 mg QHS PO Last administered on 08/03/17at 20: 48; Start 07/31/17 at 21:00; Stop 08/04/17 at 19:05; Status DC Carbidopa/Levodopa (Sinemet Cr) 2.5 tab.sa TID PO Last administered on at 08:33; Start 07/31/17 at 21:00 Olanzapine (ZyPREXA ZYDIS) 2.5 mg PRN Q2HR PRN PO PSYCHOSIS Last administered on 08/04/17at 15:28; Start 07/31/17 at 16:30 Rivastigmine (Exelon) 1 patch DAILY TD Last administered on 08/04/17at 08:34; Start 08/02/17 at 09:00; Stop 08/04/17 at 23:00 Rivastigmine (Exelon) 1 patch DAILY TD ; Start 08/05/17 at 09:00 Sertraline HCl (Zoloft) 50 mg DAILY PO Last administered on 08/03/17at 09:15; Start 08/03/17 at 09:00; Stop 08/03/17 at 17:53; Status DC Citalopram Hydrobromide (CeleXA) 30 mg DAILY PO Last administered on 08/03/17at 21:05; Start 08/04/17 at 09:00 Citalopram Hydrobromide (CeleXA) 30 mg 1X ONCE PO Last administered on at 08:43; Start 08/04/17 at 09:00; Stop 08/04/17 at 09:02; Status DC Quetiapine Fumarate (SEROquel) 50 mg QHS PO ; Start 08/04/17 at 21:00 Memantine (Namenda) 10 mg DAILY PO ; Start 08/05/17 at 09:00 Active Scripts Active Reported Magnesium Oxide 400 Mg Tablet 400 Mg PO DAILY Sinemet 25-100 Mg Tablet (Carbidopa/Levodopa) 1 Each Tablet 1 Tab PO PRN QHS PRN Seroquel (Quetiapine Fumarate) 25 Mg Tablet 25 Mg PO HS Xanax (Alprazolam) 0.25 Mg Tablet 0.25 Mg PO PRN QID PRN Celexa (Citalopram Hydrobromide) 20 Mg Tablet 30 Mg PO DAILY [carbidopa/levodopa] 50-200 Mg PO TID I have reviewed the current psychotropics carefully including drug interactions. Risk benefit ratio favors no change other than as noted in my dictated progress note. Diagnosis: Problems: (1) Anxiety disorder (2) Dementia in Alzheimer's disease with delusions (3) Dementia in Alzheimer's disease with depression (4) Dementia, vascular, with delusions (5) Dementia, vascular, with depression (6) Impulse control disorder GABRIEL BAI MD Aug 04, 2017 20:55
[2017-08-04] MEDS: QUEtiapine 50 MG TABLET. PO SCH (21:00)
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
[2017-08-05 05:52] VITALS: BP 143/80
[2017-08-05] MEDS: MAGNESIUM OXIDE 400 MG TABLET PO SCH ×2 (08:03→11:53)
[2017-08-05] MEDS: CARBIDOPA/LEVODOPA CR 50/200MG TABLET.SA PO SCH ×4 (08:03→20:00)
[2017-08-05] MEDS: CITALOPRAM 10 MG TABLET. PO SCH ×2 (08:03→11:53)
[2017-08-05] MEDS: MEMANTINE 10 MG TABLET. PO SCH ×2 (08:20→11:53)
[2017-08-05] MEDS: RIVASTIGMINE 9.5MG PATCH. TD SCH (08:21)
--- NOTE | 2017-08-05 08:41 | NUR ---
patient in dining room, sitting with eyes closed, not responding to verbal commands. Sternal rubbed patient, he responded. Patient refusing to eat, drink or take medications. Medications offered whole, then crushed and hidden in boost. Will monitor whether patient consumes meds. Addendum: 08/05/17 at 1156 by NOE BURROUGHS RN Patient did not drink boost with meds hidden. Patient non compliant with medications this morning, medications un-administered and charted as refused. Patient did get exelon patch.
[2017-08-05] MEDS: QUEtiapine 25 MG TABLET. PO SCH (12:21)
--- NOTE | 2017-08-05 14:56 | NUR ---
Had a conversation with patients regarding starting daytime seroquel and namenda. She was initially very resistive to the fact that we had started patient on seroquel 12.5 BID@0900,1300 for mood stabilization, but after our conversation about his combative behaviors she was willing to try it. Her concern is that he will be over sedated. Advised her that 12.5mg is a very, very small dose and that we will monitor his activity/sedation level. She was pleased that he has been started on Namenda for memory support.
--- NOTE | 2017-08-05 15:00 | NUR ---
Patients visited at lunch. Patient ate a good lunch and was compliant with 1300/1400 medications with 's encouragement. Patient laid down to rest after lunch and fell asleep. No combative/aggressive behaviors noted during this shift.
[2017-08-05 16:47] VITALS: BP 150/77
[2017-08-05] MEDS: QUEtiapine 50 MG TABLET. PO SCH (20:01)
[2017-08-05] MEDS: MEMANTINE 5 MG TABLET. PO SCH (20:06)
--- NOTE | 2017-08-05 21:00 | NUR ---
Behavior Intervention Response and Plan: BIRP Note: Behavior: Assumed Care of patient, patient located in Patient Room at shift change. Patient exhibited the following behavior Disorganized, Drowsy, Cooperative. Brief assessment on rounds of vital signs, medication needs, lab studies, and pain. Treatment plan problems . Intervention: Patient assessed and the following interventions initiated safety checks 15 Minute Checks Cognitive Assessment , Head to toe Assessment , Medications. Response: After interactions and interventions patient responded in the following manner, Disorganized , Cooperative ,Drowsy. Continue to assess behaviors and condition will continue to monitor throughout the shift as needed. Patient educated on ADL's, and hand hygiene. 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 Continue to assess patient for changes in above assessment. Monitor for medication needs, pain, and safety concerns. Hourly rounding performed to ensure safe environment.
--- NOTE | 2017-08-05 22:27 | PDOC ---
Exam Note: Elmo Note: Please also refer to the separate dictated note~for this date of service dictated separately.~Patient seen individually. Discussed the patient with Nursing staff reviewed the chart.~Reviewed interim history and current functioning. Reviewed vital signs,~Labs/ Radiology~and current medications noted below. Continue current treatment with the changes noted in the dictated addendum note Assessment: Vital Signs: Vital Signs Date Time Temp Pulse Resp B/P (MAP) Pulse Ox O2 Delivery O2 Flow Rate FiO2 08/05/17 16:47 98.7 88 20 150/77 (101) 98 Room Air I&O Intake and Output 08/05/17 07:00 Intake Total 840 ml Balance 840 ml Intake Oral 840 ml # Bowel Movements 1 Current Medications: Meds: Current Medications Acetaminophen (Tylenol) 650 mg PRN Q6HRS PRN PO PAIN / TEMP; Start 07/31/17 at 14:00 Multi-Ingredient Ointment (Analgesic [place]) 1 avila PRN QID PRN TP MUSCLE PAIN; Start 07/31/17 at 14:00 Al Hydroxide/Mg Hydroxide (Mylanta Plus Xs) 15 ml PRN AFTMEALHC PRN PO DYSPEPSIA; Start 07/31/17 at 14:00 Magnesium Hydroxide (Milk Of Magnesia) 2,400 mg PRN QHS PRN PO CONSTIPATION Last administered on 08/04/17at 21:38; Start 07/31/17 at 14:00 Carbidopa/Levodopa (Sinemet 25/100) 1 tab PRN QHS PRN PO dystonia Last administered on 08/02/17at 14:48; Start 07/31/17 at 16:15 Citalopram Hydrobromide (CeleXA) 30 mg DAILY PO Last administered on 08/02/17at 08:24; Start 08/01/17 at 09:00; Stop 08/02/17 at 18:13; Status DC Alprazolam (Xanax) 0.25 mg PRN QID PRN PO ANXIETY / AGITATION; Start 07/31/17 at 16:30 Magnesium Oxide (Magnesium Oxide) 400 mg DAILY PO Last administered on at 08:33; Start 08/01/17 at 09:00 Quetiapine Fumarate (SEROquel) 25 mg QHS PO Last administered on 08/03/17at 20: 48; Start 07/31/17 at 21:00; Stop 08/04/17 at 19:05; Status DC Carbidopa/Levodopa (Sinemet Cr) 2.5 tab.sa TID PO Last administered on at 20:00; Start 07/31/17 at 21:00 Olanzapine (ZyPREXA ZYDIS) 2.5 mg PRN Q2HR PRN PO PSYCHOSIS Last administered on 08/04/17at 15:28; Start 07/31/17 at 16:30 Rivastigmine (Exelon) 1 patch DAILY TD Last administered on 08/04/17at 08:34; Start 08/02/17 at 09:00; Stop 08/04/17 at 23:00; Status DC Rivastigmine (Exelon) 1 patch DAILY TD Last administered on 08/05/17at 08:21; Start 08/05/17 at 09:00 Sertraline HCl (Zoloft) 50 mg DAILY PO Last administered on 08/03/17at 09:15; Start 08/03/17 at 09:00; Stop 08/03/17 at 17:53; Status DC Citalopram Hydrobromide (CeleXA) 30 mg DAILY PO Last administered on 08/03/17at 21:05; Start 08/04/17 at 09:00 Citalopram Hydrobromide (CeleXA) 30 mg 1X ONCE PO Last administered on at 08:43; Start 08/04/17 at 09:00; Stop 08/04/17 at 09:02; Status DC Quetiapine Fumarate (SEROquel) 50 mg QHS PO Last administered on 08/05/17at 20: 01; Start 08/04/17 at 21:00 Memantine (Namenda) 10 mg DAILY PO ; Start 08/05/17 at 09:00 Memantine (Namenda) 5 mg QHS PO Last administered on 08/05/17at 20:06; Start at 21:00; Stop 08/07/17 at 21:01 Memantine (Namenda) 10 mg QHS PO ; Start 08/08/17 at 21:00 Quetiapine Fumarate (SEROquel) 12.5 mg BID@0900,1300 PO Last administered on at 12:21; Start 08/05/17 at 13:00 Active Scripts Active Reported Magnesium Oxide 400 Mg Tablet 400 Mg PO DAILY Sinemet 25-100 Mg Tablet (Carbidopa/Levodopa) 1 Each Tablet 1 Tab PO PRN QHS PRN Seroquel (Quetiapine Fumarate) 25 Mg Tablet 25 Mg PO HS Xanax (Alprazolam) 0.25 Mg Tablet 0.25 Mg PO PRN QID PRN Celexa (Citalopram Hydrobromide) 20 Mg Tablet 30 Mg PO DAILY [carbidopa/levodopa] 50-200 Mg PO TID I have reviewed the current psychotropics carefully including drug interactions. Risk benefit ratio favors no change other than as noted in my dictated progress note. Diagnosis: Problems: (1) Anxiety disorder (2) Dementia in Alzheimer's disease with delusions (3) Dementia in Alzheimer's disease with depression (4) Dementia, vascular, with delusions (5) Dementia, vascular, with depression (6) Impulse control disorder GABRIEL BAI MD Aug 05, 2017 22:27
[2017-08-06 06:44] VITALS: BP 143/77
[2017-08-06] MEDS: QUEtiapine 25 MG TABLET. PO SCH ×2 (08:54→13:08)
[2017-08-06] MEDS: MEMANTINE 10 MG TABLET. PO SCH (08:54)
[2017-08-06] MEDS: CARBIDOPA/LEVODOPA CR 50/200MG TABLET.SA PO SCH ×3 (08:54→19:49)
[2017-08-06] MEDS: MAGNESIUM OXIDE 400 MG TABLET PO SCH (08:55)
[2017-08-06] MEDS: CITALOPRAM 10 MG TABLET. PO SCH (08:55)
[2017-08-06] MEDS: RIVASTIGMINE 9.5MG PATCH. TD SCH (08:58)
--- NOTE | 2017-08-06 09:15 | NUR ---
SW spoke with pt prior to visiting hours. SW had tried to call for treatment team, however no answer. SW talked with her about coming to the afternoon visiting hours as pt seems to have more issues in the afternoon.
--- NOTE | 2017-08-06 12:12 | NUR ---
assumed care of patient at 1200. Patient on his way to lunch.
--- NOTE | 2017-08-06 15:55 | NUR ---
Assumed care of pt; pt in day room.
[2017-08-06 16:34] VITALS: BP 109/56
--- NOTE | 2017-08-06 18:24 | NUR ---
Nursing Note: PT became agitated in day room, unable to redirect, PRN given.
--- NOTE | 2017-08-06 19:11 | NUR ---
Nursing Note: visited and asked about pt being switched to Exelon pill d/t cost. Dr. Powell said that pill form of medication can cause pt to feel ill and would like to wait until pt is able to eat more and to consult Dr. Morales about giving Marinol 2.5 mg daily to increase appetite (which will possibly help with agitation as well).
[2017-08-06] MEDS: MEMANTINE 5 MG TABLET. PO SCH (19:49)
[2017-08-06] MEDS: QUEtiapine 50 MG TABLET. PO SCH (19:49)
--- NOTE | 2017-08-06 19:50 | NUR ---
Behavior Intervention Response and Plan: BIRP Note: Behavior: Assumed Care of patient, patient located in Day Room at shift change. Patient exhibited the following behavior Calm, Compliant, Withdrawn. Brief assessment on rounds of vital signs, medication needs, lab studies, and pain. Treatment plan problems . Intervention: Patient assessed and the following interventions initiated safety checks 15 Minute Checks Cognitive Assessment , Head to toe Assessment , Medications. Response: After interactions and interventions patient responded in the following manner, Calm , Compliant ,Withdrawn. Continue to assess behaviors and condition will continue to monitor throughout the shift as needed. Patient educated on ADL's, and hand hygiene. 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 Continue to assess patient for changes in above assessment. Monitor for medication needs, pain, and safety concerns. Hourly rounding performed to ensure safe environment.
--- NOTE | 2017-08-06 22:28 | PDOC ---
Exam Note: Emlo Note: Please also refer to the separate dictated note~for this date of service dictated separately.~Patient seen individually. Discussed the patient with Nursing staff reviewed the chart.~Reviewed interim history and current functioning. Reviewed vital signs,~Labs/ Radiology~and current medications noted below. Continue current treatment with the changes noted in the dictated addendum note Assessment: Vital Signs: Vital Signs Date Time Temp Pulse Resp B/P (MAP) Pulse Ox O2 Delivery O2 Flow Rate FiO2 08/06/17 16:34 97.1 56 16 109/56 (73) 98 Room Air I&O Intake and Output 08/06/17 07:00 Intake Total 240 ml Balance 240 ml Intake Oral 240 ml # Bowel Movements 4 Current Medications: Meds: Current Medications Acetaminophen (Tylenol) 650 mg PRN Q6HRS PRN PO PAIN / TEMP; Start 07/31/17 at 14:00 Multi-Ingredient Ointment (Analgesic [place]) 1 avila PRN QID PRN TP MUSCLE PAIN; Start 07/31/17 at 14:00 Al Hydroxide/Mg Hydroxide (Mylanta Plus Xs) 15 ml PRN AFTMEALHC PRN PO DYSPEPSIA; Start 07/31/17 at 14:00 Magnesium Hydroxide (Milk Of Magnesia) 2,400 mg PRN QHS PRN PO CONSTIPATION Last administered on 08/04/17at 21:38; Start 07/31/17 at 14:00 Carbidopa/Levodopa (Sinemet 25/100) 1 tab PRN QHS PRN PO dystonia Last administered on 08/02/17at 14:48; Start 07/31/17 at 16:15 Citalopram Hydrobromide (CeleXA) 30 mg DAILY PO Last administered on 08/02/17at 08:24; Start 08/01/17 at 09:00; Stop 08/02/17 at 18:13; Status DC Alprazolam (Xanax) 0.25 mg PRN QID PRN PO ANXIETY / AGITATION; Start 07/31/17 at 16:30 Magnesium Oxide (Magnesium Oxide) 400 mg DAILY PO Last administered on at 08:55; Start 08/01/17 at 09:00 Quetiapine Fumarate (SEROquel) 25 mg QHS PO Last administered on 08/03/17at 20: 48; Start 07/31/17 at 21:00; Stop 08/04/17 at 19:05; Status DC Carbidopa/Levodopa (Sinemet Cr) 2.5 tab.sa TID PO Last administered on at 19:49; Start 07/31/17 at 21:00 Olanzapine (ZyPREXA ZYDIS) 2.5 mg PRN Q2HR PRN PO PSYCHOSIS Last administered on 08/06/17at 18:14; Start 07/31/17 at 16:30 Rivastigmine (Exelon) 1 patch DAILY TD Last administered on 08/04/17at 08:34; Start 08/02/17 at 09:00; Stop 08/04/17 at 23:00; Status DC Rivastigmine (Exelon) 1 patch DAILY TD Last administered on 08/06/17at 08:58; Start 08/05/17 at 09:00; Stop 08/08/17 at 09:30 Sertraline HCl (Zoloft) 50 mg DAILY PO Last administered on 08/03/17at 09:15; Start 08/03/17 at 09:00; Stop 08/03/17 at 17:53; Status DC Citalopram Hydrobromide (CeleXA) 30 mg DAILY PO Last administered on 08/06/17at 08:55; Start 08/04/17 at 09:00 Citalopram Hydrobromide (CeleXA) 30 mg 1X ONCE PO Last administered on at 08:43; Start 08/04/17 at 09:00; Stop 08/04/17 at 09:02; Status DC Quetiapine Fumarate (SEROquel) 50 mg QHS PO Last administered on 08/06/17at 19: 49; Start 08/04/17 at 21:00 Memantine (Namenda) 10 mg DAILY PO Last administered on 08/06/17at 08:54; Start 08/05/17 at 09:00 Memantine (Namenda) 5 mg QHS PO Last administered on 08/06/17at 19:49; Start at 21:00; Stop 08/07/17 at 21:01 Memantine (Namenda) 10 mg QHS PO ; Start 08/08/17 at 21:00 Quetiapine Fumarate (SEROquel) 12.5 mg BID@0900,1300 PO Last administered on at 13:08; Start 08/05/17 at 13:00 Rivastigmine (Exelon 13.3mg) 1 patch DAILY TD ; Start 08/09/17 at 09:00 Active Scripts Active Reported Magnesium Oxide 400 Mg Tablet 400 Mg PO DAILY Sinemet 25-100 Mg Tablet (Carbidopa/Levodopa) 1 Each Tablet 1 Tab PO PRN QHS PRN Seroquel (Quetiapine Fumarate) 25 Mg Tablet 25 Mg PO HS Xanax (Alprazolam) 0.25 Mg Tablet 0.25 Mg PO PRN QID PRN Celexa (Citalopram Hydrobromide) 20 Mg Tablet 30 Mg PO DAILY [carbidopa/levodopa] 50-200 Mg PO TID I have reviewed the current psychotropics carefully including drug interactions. Risk benefit ratio favors no change other than as noted in my dictated progress note. Diagnosis: Problems: (1) Anxiety disorder (2) Dementia in Alzheimer's disease with delusions (3) Dementia in Alzheimer's disease with depression (4) Dementia, vascular, with delusions (5) Dementia, vascular, with depression (6) Impulse control disorder GABRIEL BAI MD Aug 06, 2017 22:27
[2017-08-07 06:32] VITALS: BP 143/78
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
--- NOTE | 2017-08-07 07:17 | PN ---
DATE: 08/05/2017 PSYCHIATRIC PROGRESS NOTE This is a late entry for 08/05/2017, covers the elements not covered in my initial note. SUBJECTIVE: I met with the patient's individually and staffed at a treatment team meeting with the entire team and his , Lynda attended the conference. The patient is quite intermittently agitated, combative, seems to sundown. Slept 6-1/2 hours. REVIEW OF SYSTEMS: No CV, , pulmonary, eye, ENT system symptoms on review. Reliability poor. MENTAL STATUS EXAM: Oriented to himself. Insight, judgment, recent and remote memory, attention, concentration, fund of knowledge poor, consistent with his diagnosis. IMPRESSION: Major neurocognitive disorder, Lewy body with delusion, depression, behavioral disturbance. PLAN: Gradually increase the Namenda to 5 mg a.m. and 10 mg p.m. and then 10 mg twice a day. Change Seroquel 50 mg at bedtime to 12.5 mg at 9 a.m. and 1 p.m., and 25 mg at bedtime. Continue Celexa along with Zyprexa p.r.n. and Exelon patch. MAN Radha BAI MD DR: TATIANA/ji JOB#: [id number] / [id number]
[2017-08-07] MEDS: RIVASTIGMINE 9.5MG PATCH. TD SCH (09:00)
[2017-08-07] MEDS: MAGNESIUM OXIDE 400 MG TABLET PO SCH (09:00)
[2017-08-07] MEDS: MEMANTINE 10 MG TABLET. PO SCH (09:00)
[2017-08-07] MEDS: CITALOPRAM 10 MG TABLET. PO SCH (09:00)
[2017-08-07] MEDS: CARBIDOPA/LEVODOPA CR 50/200MG TABLET.SA PO SCH ×3 (09:00→20:01)
[2017-08-07] MEDS: QUEtiapine 25 MG TABLET. PO SCH ×2 (09:00→13:00)
[2017-08-07 16:13] VITALS: BP 133/71
[2017-08-07 19:23] LABS: BILIRUBIN,URINE NEG (NEG); CLARITY,URINE CLEAR; COLOR,URINE YELLOW; GLUCOSE,URINE NEG (NEG); NITRITE,URINE NEG (NEG); UROBILINOGEN,URINE 0.2 mg/dL (0.2 mg/dL)
[2017-08-07 19:24] LABS: BACTERIA,URINE 0 /HPF (0-FEW); SQUAMOUS EPITHELIAL CELL,UR OCC /LPF
--- NOTE | 2017-08-07 20:00 | NUR ---
Behavior Intervention Response and Plan: BIRP Note: Behavior: Assumed Care of patient, patient located in Day Room at shift change. Patient exhibited the following behavior Calm, Compliant, Social. Brief assessment on rounds of vital signs, medication needs, lab studies, and pain. Treatment plan problems . Intervention: Patient assessed and the following interventions initiated safety checks 15 Minute Checks Cognitive Assessment , Head to toe Assessment , Medications. Response: After interactions and interventions patient responded in the following manner, Calm , Compliant ,Social. Continue to assess behaviors and condition will continue to monitor throughout the shift as needed. Patient educated on ADL's, and hand hygiene. Plan: Continue to monitor Master Treatment Plan for patient's progress toward short term goals of Decreased Agitation, Decreased Aggression, laborer marine terminal goals to return to previous living setting vs placement. Continue to assess patient for changes in above assessment. Monitor for medication needs, pain, and safety concerns. Hourly rounding performed to ensure safe environment.
[2017-08-07] MEDS: MEMANTINE 5 MG TABLET. PO SCH (20:01)
[2017-08-07] MEDS: QUEtiapine 50 MG TABLET. PO SCH (20:02)
--- NOTE | 2017-08-07 22:31 | PDOC ---
Exam Note: Elmo Note: Please also refer to the separate dictated note~for this date of service dictated separately.~Patient seen individually. Discussed the patient with Nursing staff reviewed the chart.~Reviewed interim history and current functioning. Reviewed vital signs,~Labs/ Radiology~and current medications noted below. Continue current treatment with the changes noted in the dictated addendum note Assessment: Vital Signs: Vital Signs Date Time Temp Pulse Resp B/P (MAP) Pulse Ox O2 Delivery O2 Flow Rate FiO2 08/07/17 16:13 98.1 74 16 133/71 (91) 96 Room Air I&O Intake and Output 08/07/17 07:01 Intake Total 1260 ml Balance 1260 ml Intake Oral 1260 ml # Bowel Movements 1 Labs: Laboratory Tests Test 08/07/17 17:25 Urine Collection Type Unknown Urine Color Yellow Urine Clarity Clear Urine pH 7.0 Urine Specific [place] 1.015 Urine Protein Neg (NEG-TRACE) Urine Glucose (UA) Neg mg/dL (NEG) Urine Ketones (Stick) Trace mg/dL (NEG) Urine Blood Trace (NEG) Urine Nitrite Neg (NEG) Urine Bilirubin Neg (NEG) Urine Urobilinogen Dipstick 0.2 mg/dL (0.2 mg/dL) Urine Leukocyte Esterase Neg (NEG) Urine RBC 3-5 /HPF (0-2) Urine WBC 1-4 /HPF (0-4) Urine Squamous Epithelial Cells Occ /LPF Urine Bacteria 0 /HPF (0-FEW) Urine Mucus Slight /LPF Current Medications: Meds: Current Medications Acetaminophen (Tylenol) 650 mg PRN Q6HRS PRN PO PAIN / TEMP; Start 07/31/17 at 14:00 Multi-Ingredient Ointment (Analgesic [place]) 1 avila PRN QID PRN TP MUSCLE PAIN; Start 07/31/17 at 14:00 Al Hydroxide/Mg Hydroxide (Mylanta Plus Xs) 15 ml PRN AFTMEALHC PRN PO DYSPEPSIA; Start 07/31/17 at 14:00 Magnesium Hydroxide (Milk Of Magnesia) 2,400 mg PRN QHS PRN PO CONSTIPATION Last administered on 08/04/17at 21:38; Start 07/31/17 at 14:00 Carbidopa/Levodopa (Sinemet 25/100) 1 tab PRN QHS PRN PO dystonia Last administered on 08/02/17at 14:48; Start 07/31/17 at 16:15 Citalopram Hydrobromide (CeleXA) 30 mg DAILY PO Last administered on 08/02/17at 08:24; Start 08/01/17 at 09:00; Stop 08/02/17 at 18:13; Status DC Alprazolam (Xanax) 0.25 mg PRN QID PRN PO ANXIETY / AGITATION; Start 07/31/17 at 16:30 Magnesium Oxide (Magnesium Oxide) 400 mg DAILY PO Last administered on at 09:00; Start 08/01/17 at 09:00 Quetiapine Fumarate (SEROquel) 25 mg QHS PO Last administered on 08/03/17at 20: 48; Start 07/31/17 at 21:00; Stop 08/04/17 at 19:05; Status DC Carbidopa/Levodopa (Sinemet Cr) 2.5 tab.sa TID PO Last administered on at 20:01; Start 07/31/17 at 21:00 Olanzapine (ZyPREXA ZYDIS) 2.5 mg PRN Q2HR PRN PO PSYCHOSIS Last administered on 08/07/17at 14:49; Start 07/31/17 at 16:30 Rivastigmine (Exelon) 1 patch DAILY TD Last administered on 08/04/17at 08:34; Start 08/02/17 at 09:00; Stop 08/04/17 at 23:00; Status DC Rivastigmine (Exelon) 1 patch DAILY TD Last administered on 08/07/17at 09:00; Start 08/05/17 at 09:00; Stop 08/08/17 at 09:30 Sertraline HCl (Zoloft) 50 mg DAILY PO Last administered on 08/03/17at 09:15; Start 08/03/17 at 09:00; Stop 08/03/17 at 17:53; Status DC Citalopram Hydrobromide (CeleXA) 30 mg DAILY PO Last administered on 08/07/17at 09:00; Start 08/04/17 at 09:00 Citalopram Hydrobromide (CeleXA) 30 mg 1X ONCE PO Last administered on at 08:43; Start 08/04/17 at 09:00; Stop 08/04/17 at 09:02; Status DC Quetiapine Fumarate (SEROquel) 50 mg QHS PO Last administered on 08/07/17at 20: 02; Start 08/04/17 at 21:00 Memantine (Namenda) 10 mg DAILY PO Last administered on 08/07/17at 09:00; Start 08/05/17 at 09:00 Memantine (Namenda) 5 mg QHS PO Last administered on 08/07/17at 20:01; Start at 21:00; Stop 08/07/17 at 21:01; Status DC Memantine (Namenda) 10 mg QHS PO ; Start 08/08/17 at 21:00 Quetiapine Fumarate (SEROquel) 12.5 mg BID@0900,1300 PO Last administered on at 13:00; Start 08/05/17 at 13:00 Rivastigmine (Exelon 13.3mg) 1 patch DAILY TD ; Start 08/09/17 at 09:00 Dronabinol ([place]) 2.5 mg DAILY PO ; Start 08/08/17 at 09:00 Active Scripts Active Reported Magnesium Oxide 400 Mg Tablet 400 Mg PO DAILY Sinemet 25-100 Mg Tablet (Carbidopa/Levodopa) 1 Each Tablet 1 Tab PO PRN QHS PRN Seroquel (Quetiapine Fumarate) 25 Mg Tablet 25 Mg PO HS Xanax (Alprazolam) 0.25 Mg Tablet 0.25 Mg PO PRN QID PRN Celexa (Citalopram Hydrobromide) 20 Mg Tablet 30 Mg PO DAILY [carbidopa/levodopa] 50-200 Mg PO TID I have reviewed the current psychotropics carefully including drug interactions. Risk benefit ratio favors no change other than as noted in my dictated progress note. Diagnosis: Problems: (1) Anxiety disorder (2) Dementia in Alzheimer's disease with delusions (3) Dementia in Alzheimer's disease with depression (4) Dementia, vascular, with delusions (5) Dementia, vascular, with depression (6) Impulse control disorder GABRIEL BAI MD Aug 07, 2017 22:31
[2017-08-08 06:14] VITALS: BP 152/79
[2017-08-08] MEDS: CARBIDOPA/LEVODOPA CR 50/200MG TABLET.SA PO SCH ×3 (09:27→20:11)
[2017-08-08] MEDS: MEMANTINE 10 MG TABLET. PO SCH ×2 (09:27→20:11)
[2017-08-08] MEDS: RIVASTIGMINE 9.5MG PATCH. TD SCH (09:28)
[2017-08-08] MEDS: CITALOPRAM 10 MG TABLET. PO SCH (09:28)
[2017-08-08] MEDS: MAGNESIUM OXIDE 400 MG TABLET PO SCH (09:28)
[2017-08-08] MEDS: DRONABINOL 2.5 MG CAPSULE PO SCH (09:29)
[2017-08-08] MEDS: QUEtiapine 25 MG TABLET. PO SCH ×2 (09:29→13:38)
--- NOTE | 2017-08-08 12:16 | NUR ---
Nursing Note: Pt compliant w/ shower this am, compliant w/ medications/asses, alert to name and .
--- NOTE | 2017-08-08 12:58 | NUR ---
Assisted pt in toileting after lunch; pt had a small formed BM. However, while wiping pt this nurse felt more feces patient's rectum. Encouraged pt to sit on the toilet longer; however, pt not willing. Will continue to monitor.
[2017-08-08 15:49] VITALS: BP 104/71
--- NOTE | 2017-08-08 17:04 | NUR ---
Behavior Intervention Response and Plan: BIRP Note: Behavior: Assumed Care of patient, patient located in Day Room at shift change. Patient exhibited the following behavior Sleeping, Compliant, Calm. Brief assessment on rounds of vital signs, medication needs, lab studies, and pain. Treatment plan problems dementia w/ bd and fall risk. Intervention: Patient assessed and the following interventions initiated safety checks 15 Minute Checks Medications , Head to toe Assessment , Cognitive Assessment. Response: After interactions and interventions patient responded in the following manner, Calm , Compliant ,Cooperative. Continue to assess behaviors and condition will continue to monitor throughout the shift as needed. Patient educated on ADL's, and hand hygiene. 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 Continue to assess patient for changes in above assessment. Monitor for medication needs, pain, and safety concerns. Hourly rounding performed to ensure safe environment.
--- NOTE | 2017-08-08 18:33 | NUR ---
Nursing Note: visited and said that pt needs to wear his shoes during the day for stability, and that he has a robe in his locker that if he wears it "he will not be cold and won't need to ask for a blanket."
[2017-08-08] MEDS: QUEtiapine 50 MG TABLET. PO SCH (20:11)
--- NOTE | 2017-08-08 21:02 | PDOC ---
Exam Note: Elmo Note: Please also refer to the separate dictated note~for this date of service dictated separately.~Patient seen individually. Discussed the patient with Nursing staff reviewed the chart.~Reviewed interim history and current functioning. Reviewed vital signs,~Labs/ Radiology~and current medications noted below. Continue current treatment with the changes noted in the dictated addendum note Assessment: Vital Signs: Vital Signs Date Time Temp Pulse Resp B/P (MAP) Pulse Ox O2 Delivery O2 Flow Rate FiO2 08/08/17 15:49 97.4 63 18 104/71 (82) 99 08/07/17 16:13 Room Air I&O Intake and Output 08/08/17 07:01 Intake Total 545 ml Balance 545 ml Intake Oral 545 ml Current Medications: Meds: Current Medications Acetaminophen (Tylenol) 650 mg PRN Q6HRS PRN PO PAIN / TEMP; Start 07/31/17 at 14:00 Multi-Ingredient Ointment (Analgesic Check) 1 avila PRN QID PRN TP MUSCLE PAIN; Start 07/31/17 at 14:00 Al Hydroxide/Mg Hydroxide (Mylanta Plus Xs) 15 ml PRN AFTMEALHC PRN PO DYSPEPSIA; Start 07/31/17 at 14:00 Magnesium Hydroxide (Milk Of Magnesia) 2,400 mg PRN QHS PRN PO CONSTIPATION Last administered on 08/04/17at 21:38; Start 07/31/17 at 14:00 Carbidopa/Levodopa (Sinemet 25/100) 1 tab PRN QHS PRN PO dystonia Last administered on 08/02/17at 14:48; Start 07/31/17 at 16:15 Citalopram Hydrobromide (CeleXA) 30 mg DAILY PO Last administered on 08/02/17at 08:24; Start 08/01/17 at 09:00; Stop 08/02/17 at 18:13; Status DC Alprazolam (Xanax) 0.25 mg PRN QID PRN PO ANXIETY / AGITATION; Start 07/31/17 at 16:30 Magnesium Oxide (Magnesium Oxide) 400 mg DAILY PO Last administered on at 09:28; Start 08/01/17 at 09:00 Quetiapine Fumarate (SEROquel) 25 mg QHS PO Last administered on 08/03/17at 20: 48; Start 07/31/17 at 21:00; Stop 08/04/17 at 19:05; Status DC Carbidopa/Levodopa (Sinemet Cr) 2.5 tab.sa TID PO Last administered on at 20:11; Start 07/31/17 at 21:00 Olanzapine (ZyPREXA ZYDIS) 2.5 mg PRN Q2HR PRN PO PSYCHOSIS Last administered on 08/07/17at 14:49; Start 07/31/17 at 16:30 Rivastigmine (Exelon) 1 patch DAILY TD Last administered on 08/04/17at 08:34; Start 08/02/17 at 09:00; Stop 08/04/17 at 23:00; Status DC Rivastigmine (Exelon) 1 patch DAILY TD Last administered on 08/08/17at 09:28; Start 08/05/17 at 09:00; Stop 08/08/17 at 09:30; Status DC Sertraline HCl (Zoloft) 50 mg DAILY PO Last administered on 08/03/17at 09:15; Start 08/03/17 at 09:00; Stop 08/03/17 at 17:53; Status DC Citalopram Hydrobromide (CeleXA) 30 mg DAILY PO Last administered on 08/08/17at 09:28; Start 08/04/17 at 09:00 Citalopram Hydrobromide (CeleXA) 30 mg 1X ONCE PO Last administered on at 08:43; Start 08/04/17 at 09:00; Stop 08/04/17 at 09:02; Status DC Quetiapine Fumarate (SEROquel) 50 mg QHS PO Last administered on 08/08/17at 20: 11; Start 08/04/17 at 21:00 Memantine (Namenda) 10 mg DAILY PO Last administered on 08/08/17at 09:27; Start 08/05/17 at 09:00 Memantine (Namenda) 5 mg QHS PO Last administered on 08/07/17at 20:01; Start at 21:00; Stop 08/07/17 at 21:01; Status DC Memantine (Namenda) 10 mg QHS PO Last administered on 08/08/17at 20:11; Start at 21:00 Quetiapine Fumarate (SEROquel) 12.5 mg BID@0900,1300 PO Last administered on at 13:38; Start 08/05/17 at 13:00 Rivastigmine (Exelon 13.3mg) 1 patch DAILY TD ; Start 08/09/17 at 09:00 Dronabinol (Marinol) 2.5 mg DAILY PO Last administered on 08/08/17at 09:29; Start 08/08/17 at 09:00 Active Scripts Active Reported Magnesium Oxide 400 Mg Tablet 400 Mg PO DAILY Sinemet 25-100 Mg Tablet (Carbidopa/Levodopa) 1 Each Tablet 1 Tab PO PRN QHS PRN Seroquel (Quetiapine Fumarate) 25 Mg Tablet 25 Mg PO HS Xanax (Alprazolam) 0.25 Mg Tablet 0.25 Mg PO PRN QID PRN Celexa (Citalopram Hydrobromide) 20 Mg Tablet 30 Mg PO DAILY [carbidopa/levodopa] 50-200 Mg PO TID I have reviewed the current psychotropics carefully including drug interactions. Risk benefit ratio favors no change other than as noted in my dictated progress note. Diagnosis: Problems: (1) Anxiety disorder (2) Dementia in Alzheimer's disease with delusions (3) Dementia in Alzheimer's disease with depression (4) Dementia, vascular, with delusions (5) Dementia, vascular, with depression (6) Impulse control disorder GABRIEL BAI MD Aug 08, 2017 21:02
--- NOTE | 2017-08-08 22:26 | NUR ---
Behavior Intervention Response and Plan: BIRP Note: Behavior: Assumed Care of patient, patient located in Day Room at shift change. Patient exhibited the following behavior Disorganized, Drowsy, Cooperative. Brief assessment on rounds of vital signs, medication needs, lab studies, and pain. Treatment plan problems 1-2. Intervention: Patient assessed and the following interventions initiated safety checks 15 Minute Checks Cognitive Assessment , Head to toe Assessment , Medications. Response: After interactions and interventions patient responded in the following manner, Calm , Interactive ,Compliant. Continue to assess behaviors and condition will continue to monitor throughout the shift as needed. Patient educated on ADL's, and hand hygiene. Plan: Continue to monitor Master Treatment Plan for patient's progress toward short term goals of Medication Compliance, Decreased Agitation, custodial goals to return to previous living setting vs placement. Continue to assess patient for changes in above assessment. Monitor for medication needs, pain, and safety concerns. Hourly rounding performed to ensure safe environment.
--- NOTE | 2017-08-09 02:34 | PN ---
DATE: 08/06/2017 This late entry 08/06/2017 covers elements not covered in my initial note. SUBJECTIVE: I met with the patient in the evening. Overall, the patient's mood is somewhat better. He is telling one of the female nursing staff that you are a "good-looker." He has not been sexually aggressive however. Appetite is poor. REVIEW OF SYSTEMS: No CV, , pulmonary, eye, ENT system symptoms on review. Reliability poor. MENTAL STATUS EXAM: Oriented to himself. Insight, judgment, recent and remote memory, attention, concentration, fund of knowledge poor, consistent with his diagnosis. IMPRESSION: Major neurocognitive disorder, Lewy body with delusion, depression, behavioral disturbance. Rest unchanged. PLAN: Start Marinol 2.5 mg a day to stimulate appetite if approved by Dr. Morales. Increase Exelon patch from 9.5 mg a day to 13.3 mg a day after 3 days on the 9.5. Continue rest unchanged. MAN Radha BAI MD DR: TATIANA/ji JOB#: [id number] / [id number]
[2017-08-09 06:23] VITALS: BP 149/78
[2017-08-09 08:30] LABS: BASO % 1 % (0-3); EOS # 0.1 x10^3/uL (0.0-0.7); EOS % 3 % (0-3); HEMATOCRIT 39.7 % (39.0-53.0); HEMOGLOBIN 13.2 g/dL (13.0-17.5); LYMPH # 0.8 x10^3/uL (1.0-4.8); LYMPH % 15 % (24-48); MEAN CORPUSCULAR HEMOGLOBIN 28 pg (25-35); MEAN CORPUSCULAR HGB CONC 33 g/dL (31-37); MEAN CORPUSCULAR VOLUME 84 fL (79-100); MONO # 0.5 x10^3/uL (0.0-1.1); MONO % 9 % (0-9); NEUT % 73 % (31-73); PLATELET COUNT 270 x10^3/uL (140-400); RED BLOOD COUNT 4.75 x10^6/uL (4.30-5.70); RED CELL DISTRIBUTION WIDTH 16.2 % (11.5-14.5); WHITE BLOOD COUNT 5.5 x10^3/uL (4.0-11.0)
[2017-08-09] MEDS: CARBIDOPA/LEVODOPA CR 50/200MG TABLET.SA PO SCH ×3 (09:39→19:40)
[2017-08-09] MEDS: MEMANTINE 10 MG TABLET. PO SCH ×2 (09:40→19:41)
[2017-08-09] MEDS: MAGNESIUM OXIDE 400 MG TABLET PO SCH (09:40)
[2017-08-09] MEDS: QUEtiapine 25 MG TABLET. PO SCH ×2 (09:40→13:37)
[2017-08-09] MEDS: CITALOPRAM 10 MG TABLET. PO SCH (09:40)
[2017-08-09 09:41] LABS: ALBUMIN 3.1 g/dL (3.4-5.0); ALBUMIN/GLOBULIN RATIO 0.8 (1.0-1.7); CALCIUM 8.7 mg/dL (8.5-10.1); CREATININE 0.9 mg/dL (0.7-1.3); GFR 80.4; POTASSIUM 3.5 mmol/L (3.5-5.1); TOTAL BILIRUBIN 0.7 mg/dL (0.2-1.0)
[2017-08-09] MEDS: DRONABINOL 2.5 MG CAPSULE PO SCH (09:42)
[2017-08-09] MEDS: RIVASTIGMINE 13.3MG PATCH. TD SCH (09:42)
--- NOTE | 2017-08-09 13:49 | PN ---
DATE: 08/07/2017 PSYCHIATRIC PROGRESS NOTE This is a late entry 08/07/2017, covers elements not covered in my initial note. SUBJECTIVE: I met with the patient in the evening of 08/07/2017. The patient remains confused. Appetite is poor. He is generally oblivious of his surroundings. REVIEW OF SYSTEMS: No CV, , pulmonary, eye, ENT system symptoms on review. Reliability poor. MENTAL STATUS EXAM: Oriented to himself. Insight, judgment, recent and remote memory, attention, concentration, fund of knowledge poor, consistent with his diagnoses mentioned in my initial note. IMPRESSION: Major neurocognitive disorder, probably Lewy body with delusion, depression, behavioral disturbance. PLAN: Continue current psychotropics, gradually increase the Namenda and the Exelon patch. If Dr. Morales approves we will start Marinol for appetite stimulation. Rest unchanged as before. MAN Radha BAI MD DR: TATIANA/ji JOB#: [id number] / [id number]
--- NOTE | 2017-08-09 13:58 | PN ---
DATE: 08/08/2017 This is a late entry 08/08/2017 covers the elements not covered in my initial note. SUBJECTIVE: I met with the patient in the evening of 08/08/2017. Per nursing report, he appeared "more coherent and talking better." This is quite a change. He is aware and responsive to his name and knows his date of when questioned. Compliant with medications. REVIEW OF SYSTEMS: No CV, , pulmonary, eye, ENT system symptoms on review. Reliability poor. MENTAL STATUS EXAM: Oriented to himself. Insight, judgment, recent and remote memory, attention, concentration, fund of knowledge poor, consistent with his diagnosis. IMPRESSION: Major neurocognitive disorder, Lewy body with delusion, depression, behavioral disturbance. Rest unchanged. PLAN: Continue current psychotropics including Namenda, Exelon, possibly Marinol for appetite stimulation. Maintain Celexa, Seroquel along with Xanax. GABRIEL BAI MD DR: TATIANA/ji JOB#: [id number] / [id number]
--- NOTE | 2017-08-09 14:44 | NUR ---
Behavior Intervention Response and Plan: BIRP Note: Behavior: Assumed Care of patient, patient located in Day Room at shift change. Patient exhibited the following behavior Drowsy, Disorganized, Compliant. Brief assessment on rounds of vital signs, medication needs, lab studies, and pain. Treatment plan problems dementia w/ bd and fall risk. Intervention: Patient assessed and the following interventions initiated safety checks 15 Minute Checks Head to toe Assessment , Cognitive Assessment , Medications. Response: After interactions and interventions patient responded in the following manner, Calm , Disorganized ,Withdrawn. Continue to assess behaviors and condition will continue to monitor throughout the shift as needed. Patient educated on ADL's, and hand hygiene. 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 Continue to assess patient for changes in above assessment. Monitor for medication needs, pain, and safety concerns. Hourly rounding performed to ensure safe environment.
[2017-08-09 16:18] VITALS: BP 105/64
[2017-08-09] MEDS: QUEtiapine 50 MG TABLET. PO SCH (19:41)
--- NOTE | 2017-08-09 21:04 | PDOC ---
Exam Note: Elmo Note: Please also refer to the separate dictated note~for this date of service dictated separately.~Patient seen individually. Discussed the patient with Nursing staff reviewed the chart.~Reviewed interim history and current functioning. Reviewed vital signs,~Labs/ Radiology~and current medications noted below. Continue current treatment with the changes noted in the dictated addendum note Assessment: Vital Signs: Vital Signs Date Time Temp Pulse Resp B/P (MAP) Pulse Ox O2 Delivery O2 Flow Rate FiO2 08/09/17 16:18 97.3 60 20 105/64 (78) 97 Room Air I&O Intake and Output 08/09/17 07:01 Intake Total 725 ml Balance 725 ml Intake Oral 725 ml # Bowel Movements 2 Labs: Laboratory Tests Test 08/09/17 07:49 White Blood Count 5.5 x10^3/uL (4.0-11.0) Red Blood Count 4.75 x10^6/uL (4.30-5.70) Hemoglobin 13.2 g/dL (13.0-17.5) Hematocrit 39.7 % (39.0-53.0) Mean Corpuscular Volume 84 fL (79-100) Mean Corpuscular Hemoglobin 28 pg (25-35) Mean Corpuscular Hemoglobin Concent 33 g/dL (31-37) Red Cell Distribution Width 16.2 % (11.5-14.5) H Platelet Count 270 x10^3/uL (140-400) Neutrophils (%) (Auto) 73 % (31-73) Lymphocytes (%) (Auto) 15 % (24-48) L Monocytes (%) (Auto) 9 % (0-9) Eosinophils (%) (Auto) 3 % (0-3) Basophils (%) (Auto) 1 % (0-3) Neutrophils # (Auto) 4.0 x10^3uL (1.8-7.7) Lymphocytes # (Auto) 0.8 x10^3/uL (1.0-4.8) L Monocytes # (Auto) 0.5 x10^3/uL (0.0-1.1) Eosinophils # (Auto) 0.1 x10^3/uL (0.0-0.7) Basophils # (Auto) 0.0 x10^3/uL (0.0-0.2) Sodium Level 137 mmol/L (136-145) Potassium Level 3.5 mmol/L (3.5-5.1) Chloride Level 99 mmol/L (98-107) Carbon Dioxide Level 30 mmol/L (21-32) Anion Gap 8 (6-14) Blood Urea Nitrogen 27 mg/dL (8-26) H Creatinine 0.9 mg/dL (0.7-1.3) Estimated GFR (Cockcroft-Gault) 80.4 BUN/Creatinine Ratio 30 (6-20) H Glucose Level 101 mg/dL (70-99) H Calcium Level 8.7 mg/dL (8.5-10.1) Total Bilirubin 0.7 mg/dL (0.2-1.0) Aspartate Amino Transferase (AST) 13 U/L (15-37) L Alanine Aminotransferase (ALT) 7 U/L (16-63) L Alkaline Phosphatase 85 U/L (46-116) Total Protein 7.0 g/dL (6.4-8.2) Albumin 3.1 g/dL (3.4-5.0) L Albumin/Globulin Ratio 0.8 (1.0-1.7) L Current Medications: Meds: Current Medications Acetaminophen (Tylenol) 650 mg PRN Q6HRS PRN PO PAIN / TEMP; Start 07/31/17 at 14:00 Multi-Ingredient Ointment (Analgesic [place]) 1 avila PRN QID PRN TP MUSCLE PAIN; Start 07/31/17 at 14:00 Al Hydroxide/Mg Hydroxide (Mylanta Plus Xs) 15 ml PRN AFTMEALHC PRN PO DYSPEPSIA; Start 07/31/17 at 14:00 Magnesium Hydroxide (Milk Of Magnesia) 2,400 mg PRN QHS PRN PO CONSTIPATION Last administered on 08/04/17at 21:38; Start 07/31/17 at 14:00 Carbidopa/Levodopa (Sinemet 25/100) 1 tab PRN QHS PRN PO dystonia Last administered on 08/02/17at 14:48; Start 07/31/17 at 16:15 Citalopram Hydrobromide (CeleXA) 30 mg DAILY PO Last administered on 08/02/17at 08:24; Start 08/01/17 at 09:00; Stop 08/02/17 at 18:13; Status DC Alprazolam (Xanax) 0.25 mg PRN QID PRN PO ANXIETY / AGITATION; Start 07/31/17 at 16:30 Magnesium Oxide (Magnesium Oxide) 400 mg DAILY PO Last administered on at 09:40; Start 08/01/17 at 09:00 Quetiapine Fumarate (SEROquel) 25 mg QHS PO Last administered on 08/03/17at 20: 48; Start 07/31/17 at 21:00; Stop 08/04/17 at 19:05; Status DC Carbidopa/Levodopa (Sinemet Cr) 2.5 tab.sa TID PO Last administered on at 19:40; Start 07/31/17 at 21:00 Olanzapine (ZyPREXA ZYDIS) 2.5 mg PRN Q2HR PRN PO PSYCHOSIS Last administered on 08/07/17at 14:49; Start 07/31/17 at 16:30 Rivastigmine (Exelon) 1 patch DAILY TD Last administered on 08/04/17at 08:34; Start 08/02/17 at 09:00; Stop 08/04/17 at 23:00; Status DC Rivastigmine (Exelon) 1 patch DAILY TD Last administered on 08/08/17at 09:28; Start 08/05/17 at 09:00; Stop 08/08/17 at 09:30; Status DC Sertraline HCl (Zoloft) 50 mg DAILY PO Last administered on 08/03/17at 09:15; Start 08/03/17 at 09:00; Stop 08/03/17 at 17:53; Status DC Citalopram Hydrobromide (CeleXA) 30 mg DAILY PO Last administered on 08/09/17at 09:40; Start 08/04/17 at 09:00 Citalopram Hydrobromide (CeleXA) 30 mg 1X ONCE PO Last administered on at 08:43; Start 08/04/17 at 09:00; Stop 08/04/17 at 09:02; Status DC Quetiapine Fumarate (SEROquel) 50 mg QHS PO Last administered on 08/09/17at 19: 41; Start 08/04/17 at 21:00 Memantine (Namenda) 10 mg DAILY PO Last administered on 08/09/17at 09:40; Start 08/05/17 at 09:00 Memantine (Namenda) 5 mg QHS PO Last administered on 08/07/17at 20:01; Start at 21:00; Stop 08/07/17 at 21:01; Status DC Memantine (Namenda) 10 mg QHS PO Last administered on 08/09/17at 19:41; Start at 21:00 Quetiapine Fumarate (SEROquel) 12.5 mg BID@0900,1300 PO Last administered on at 13:37; Start 08/05/17 at 13:00 Rivastigmine (Exelon 13.3mg) 1 patch DAILY TD Last administered on 08/09/17at 09 :42; Start 08/09/17 at 09:00 Dronabinol (Marinol) 2.5 mg DAILY PO Last administered on 08/09/17at 09:42; Start 08/08/17 at 09:00 Active Scripts Active Reported Magnesium Oxide 400 Mg Tablet 400 Mg PO DAILY Sinemet 25-100 Mg Tablet (Carbidopa/Levodopa) 1 Each Tablet 1 Tab PO PRN QHS PRN Seroquel (Quetiapine Fumarate) 25 Mg Tablet 25 Mg PO HS Xanax (Alprazolam) 0.25 Mg Tablet 0.25 Mg PO PRN QID PRN Celexa (Citalopram Hydrobromide) 20 Mg Tablet 30 Mg PO DAILY [carbidopa/levodopa] 50-200 Mg PO TID I have reviewed the current psychotropics carefully including drug interactions. Risk benefit ratio favors no change other than as noted in my dictated progress note. Diagnosis: Problems: (1) Anxiety disorder (2) Dementia in Alzheimer's disease with delusions (3) Dementia in Alzheimer's disease with depression (4) Dementia, vascular, with delusions (5) Dementia, vascular, with depression (6) Impulse control disorder GABRIEL BAI MD Aug 09, 2017 21:04
--- NOTE | 2017-08-09 21:20 | NUR ---
Patient is delusional and believes he needs to tell his parents that he is in the hospital. Patient is easily redirected.
--- NOTE | 2017-08-10 00:13 | NUR ---
Behavior Intervention Response and Plan: BIRP Note: Behavior: Assumed Care of patient, patient located in Day Room at shift change. Patient exhibited the following behavior Restless, Interactive, Disorganized. Brief assessment on rounds of vital signs, medication needs, lab studies, and pain. Treatment plan problems . Intervention: Patient assessed and the following interventions initiated safety checks Head to toe Assessment , Cognitive Assessment , Medications. Response: After interactions and interventions patient responded in the following manner, Social , Compliant ,Delusions. Continue to assess behaviors and condition will continue to monitor throughout the shift as needed. Patient educated on ADL's, and hand hygiene. 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 Continue to assess patient for changes in above assessment. Monitor for medication needs, pain, and safety concerns. Hourly rounding performed to ensure safe environment.
[2017-08-10 06:29] VITALS: BP 140/76
[2017-08-10] MEDS: CITALOPRAM 10 MG TABLET. PO SCH (08:22)
[2017-08-10] MEDS: QUEtiapine 25 MG TABLET. PO SCH ×2 (08:23→15:20)
[2017-08-10] MEDS: MEMANTINE 10 MG TABLET. PO SCH ×2 (08:23→19:56)
[2017-08-10] MEDS: MAGNESIUM OXIDE 400 MG TABLET PO SCH (08:23)
[2017-08-10] MEDS: DRONABINOL 2.5 MG CAPSULE PO SCH (08:23)
[2017-08-10] MEDS: CARBIDOPA/LEVODOPA CR 50/200MG TABLET.SA PO SCH ×3 (08:25→19:56)
[2017-08-10] MEDS: RIVASTIGMINE 13.3MG PATCH. TD SCH (08:25)
--- NOTE | 2017-08-10 10:00 | NUR ---
Behavior Intervention Response and Plan: BIRP Note: Behavior: Assumed Care of patient, patient located in Day Room at shift change. Patient exhibited the following behavior Calm, Disorganized, Cooperative. Brief assessment on rounds of vital signs, medication needs, lab studies, and pain. Treatment plan problems 1-2. Intervention: Patient assessed and the following interventions initiated safety checks 15 Minute Checks Personal Alarm in place , Cognitive Assessment , Head to toe Assessment. Response: After interactions and interventions patient responded in the following manner, Interactive , Disorganized ,Compliant. Continue to assess behaviors and condition will continue to monitor throughout the shift as needed. Patient educated on ADL's, and hand hygiene. 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 Continue to assess patient for changes in above assessment. Monitor for medication needs, pain, and safety concerns. Hourly rounding performed to ensure safe environment.
[2017-08-10 15:52] VITALS: BP 148/77
[2017-08-10] MEDS: QUEtiapine 50 MG TABLET. PO SCH (19:56)
--- NOTE | 2017-08-10 21:02 | PN ---
DATE: 08/09/2017 PSYCHIATRIC PROGRESS NOTE This is a late entry 08/09/2017, covers elements not covered in my initial note. SUBJECTIVE: I met with the patient in the evening. The patient slept 6 hours. The patient has been doing better per nursing report. As I met with him, he was remarking on my tie very positively along with my shirt and seemed more interactive, which is a change for him and positive one at that. REVIEW OF SYSTEMS: No CV, , pulmonary, eye, ENT system symptoms on review. Reliability poor. MENTAL STATUS EXAM: Oriented to himself. Insight, judgment, recent and remote memory, attention, concentration, fund of knowledge poor, consistent with his diagnoses mentioned in my initial note. PLAN: Continue current psychotropics. Adjust as clinically indicated. MAN Radha BAI MD DR: TATIANA/ji JOB#: [id number] / [id number]
--- NOTE | 2017-08-10 21:02 | PDOC ---
Exam Note: Elmo Note: Please also refer to the separate dictated note~for this date of service dictated separately.~Patient seen individually. Discussed the patient with Nursing staff reviewed the chart.~Reviewed interim history and current functioning. Reviewed vital signs,~Labs/ Radiology~and current medications noted below. Continue current treatment with the changes noted in the dictated addendum note Assessment: Vital Signs: Vital Signs Date Time Temp Pulse Resp B/P (MAP) Pulse Ox O2 Delivery O2 Flow Rate FiO2 08/10/17 15:52 97.8 73 17 148/77 (100) 97 08/10/17 06:29 Room Air I&O Intake and Output 08/10/17 07:00 Intake Total 1080 ml Balance 1080 ml Intake Oral 1080 ml Current Medications: Meds: Current Medications Acetaminophen (Tylenol) 650 mg PRN Q6HRS PRN PO PAIN / TEMP; Start 07/31/17 at 14:00 Multi-Ingredient Ointment (Analgesic [place]) 1 avila PRN QID PRN TP MUSCLE PAIN; Start 07/31/17 at 14:00 Al Hydroxide/Mg Hydroxide (Mylanta Plus Xs) 15 ml PRN AFTMEALHC PRN PO DYSPEPSIA; Start 07/31/17 at 14:00 Magnesium Hydroxide (Milk Of Magnesia) 2,400 mg PRN QHS PRN PO CONSTIPATION Last administered on 08/04/17at 21:38; Start 07/31/17 at 14:00 Carbidopa/Levodopa (Sinemet 25/100) 1 tab PRN QHS PRN PO dystonia Last administered on 08/02/17at 14:48; Start 07/31/17 at 16:15 Citalopram Hydrobromide (CeleXA) 30 mg DAILY PO Last administered on 08/02/17at 08:24; Start 08/01/17 at 09:00; Stop 08/02/17 at 18:13; Status DC Alprazolam (Xanax) 0.25 mg PRN QID PRN PO ANXIETY / AGITATION; Start 07/31/17 at 16:30 Magnesium Oxide (Magnesium Oxide) 400 mg DAILY PO Last administered on at 08:23; Start 08/01/17 at 09:00 Quetiapine Fumarate (SEROquel) 25 mg QHS PO Last administered on 08/03/17at 20: 48; Start 07/31/17 at 21:00; Stop 08/04/17 at 19:05; Status DC Carbidopa/Levodopa (Sinemet Cr) 2.5 tab.sa TID PO Last administered on 19:56; Start 07/31/17 at 21:00 Olanzapine (ZyPREXA ZYDIS) 2.5 mg PRN Q2HR PRN PO PSYCHOSIS Last administered on 08/07/17 14:49; Start 07/31/17 at 16:30 Rivastigmine (Exelon) 1 patch DAILY TD Last administered on 08/04/17at 08:34; Start 08/02/17 at 09:00; Stop 08/04/17 at 23:00; Status DC Rivastigmine (Exelon) 1 patch DAILY TD Last administered on 08/08/17at 09:28; Start 08/05/17 at 09:00; Stop 08/08/17 at 09:30; Status DC Sertraline HCl (Zoloft) 50 mg DAILY PO Last administered on 08/03/17at 09:15; Start 08/03/17 at 09:00; Stop 08/03/17 at 17:53; Status DC Citalopram Hydrobromide (CeleXA) 30 mg DAILY PO Last administered on 08/10/17 08:22; Start 08/04/17 at 09:00 Citalopram Hydrobromide (CeleXA) 30 mg 1X ONCE PO Last administered on at 08:43; Start 08/04/17 at 09:00; Stop 08/04/17 at 09:02; Status DC Quetiapine Fumarate (SEROquel) 50 mg QHS PO Last administered on 08/10/17 19: 56; Start 08/04/17 at 21:00 Memantine (Namenda) 10 mg DAILY PO Last administered on 08/10/17at 08:23; Start 08/05/17 at 09:00 Memantine (Namenda) 5 mg QHS PO Last administered on 08/07/17at 20:01; Start at 21:00; Stop 08/07/17 at 21:01; Status DC Memantine (Namenda) 10 mg QHS PO Last administered on 08/10/17at 19:56; Start at 21:00 Quetiapine Fumarate (SEROquel) 12.5 mg BID@0900,1300 PO Last administered on at 15:20; Start 08/05/17 at 13:00 Rivastigmine (Exelon 13.3mg) 1 patch DAILY TD Last administered on 08/10/17at 08 :25; Start 08/09/17 at 09:00 Dronabinol (Marinol) 2.5 mg DAILY PO Last administered on 08/10/17at 08:23; Start 08/08/17 at 09:00 Active Scripts Active Reported Magnesium Oxide 400 Mg Tablet 400 Mg PO DAILY Sinemet 25-100 Mg Tablet (Carbidopa/Levodopa) 1 Each Tablet 1 Tab PO PRN QHS PRN Seroquel (Quetiapine Fumarate) 25 Mg Tablet 25 Mg PO HS Xanax (Alprazolam) 0.25 Mg Tablet 0.25 Mg PO PRN QID PRN Celexa (Citalopram Hydrobromide) 20 Mg Tablet 30 Mg PO DAILY [carbidopa/levodopa] 50-200 Mg PO TID I have reviewed the current psychotropics carefully including drug interactions. Risk benefit ratio favors no change other than as noted in my dictated progress note. 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
--- NOTE | 2017-08-11 01:22 | NUR ---
Behavior Intervention Response and Plan: BIRP Note: Behavior: Assumed Care of patient, patient located in Day Room at shift change. Patient exhibited the following behavior Calm, Compliant, Cooperative. Brief assessment on rounds of vital signs, medication needs, lab studies, and pain. Treatment plan problems dementia w/ bd and fall risk. Intervention: Patient assessed and the following interventions initiated safety checks 15 Minute Checks Personal Alarm in place , Cognitive Assessment , Medications. Response: After interactions and interventions patient responded in the following manner, Calm , Compliant ,Cooperative. Continue to assess behaviors and condition will continue to monitor throughout the shift as needed. Patient educated on ADL's, and hand hygiene. 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 Continue to assess patient for changes in above assessment. Monitor for medication needs, pain, and safety concerns. Hourly rounding performed to ensure safe environment.
[2017-08-11 06:04] VITALS: BP 186/88
--- NOTE | 2017-08-11 06:42 | NUR ---
Nursing Note Patient witnessed falling in day room. Patient was sitting at table in day room and was attempting to push self back from table and tipped the W/C over backwards causing the patient to hit the rear of his head. Patient has no visible wound r/t fall. Patient vital signs while supine BP 158/88, Pulse 63, Respirations 18, o2 98. Patient Vitals while sitting 147/83, Pulse 66, [address] Morales called @ [address] head [address] w/o contrast ordered. Patient family called @0645. Nursing plastering supervisor called @0646.
--- NOTE | 2017-08-11 07:22 | RAD ---
PQRS Compliance Statement: One or more of the following individualized dose reduction techniques were utilized for this examination: 1. Automated exposure control 2. Adjustment of the mA and/or kV according to patient size 3. Use of iterative reconstruction technique CT head without contrast 08/11/2017 6:43 AM INDICATION: Fall this morning COMPARISON: None available TECHNIQUE: Multiple axial CT images of the head were obtained from skull base through the vertex without intravenous contrast. FINDINGS: Head: Ventricles, sulci and basal cisterns are prominent compatible with mild to moderate generalized cerebral volume loss. Low-attenuation in the periventricular white matter suggestive of chronic small vessel ischemic changes. There is no hydrocephalus. [place]-white matter differentiation is normal. There is no acute intracranial hemorrhage. There is no mass, mass effect or midline shift. Posterior fossa is normal in appearance. There is ectasia of the distal basilar tip measuring 5 mm. Atherosclerotic calcifications are identified involving the cavernous segments of internal carotid arteries and vertebral arteries. Visualized portions of the orbits are normal. Paranasal sinuses are well aerated. Mastoid air cells are well aerated. Scalp and calvaria are normal. IMPRESSION: No acute intracranial hemorrhage. Mild to moderate generalized cerebral volume loss with low attenuation in the periventricular white matter suggestive of chronic small vessel ischemic changes. There is ectasia of the distal basilar tip measuring 5 mm. Nonemergent CTA of the head may be of benefit. Electronically signed by: Ina Cleveland MD (08/11/2017 7:18 AM) [id number]
--- NOTE | 2017-08-11 08:30 | NUR ---
Head CT negative.
[2017-08-11] MEDS: MEMANTINE 10 MG TABLET. PO SCH ×2 (09:12→20:38)
[2017-08-11] MEDS: CARBIDOPA/LEVODOPA CR 50/200MG TABLET.SA PO SCH ×3 (09:12→20:36)
[2017-08-11] MEDS: QUEtiapine 25 MG TABLET. PO SCH ×3 (09:13→20:36)
[2017-08-11] MEDS: CITALOPRAM 10 MG TABLET. PO SCH (09:14)
[2017-08-11] MEDS: DRONABINOL 2.5 MG CAPSULE PO SCH (09:14)
[2017-08-11] MEDS: MAGNESIUM OXIDE 400 MG TABLET PO SCH (09:14)
[2017-08-11] MEDS: RIVASTIGMINE 13.3MG PATCH. TD SCH (09:14)
--- NOTE | 2017-08-11 09:26 | NUR ---
Nursing Note: Encountered Pt in dining room, pt slightly drowsy, not very interested in eating breakfast, staff assisted pt in eating. Gave pt medication in day room after breakfast, pt compliant w/ medication, refused to answer questions. When asked if he was suffering any pain pt shook his head negative.
--- NOTE | 2017-08-11 13:50 | PN ---
DATE: 08/10/2017 PSYCHIATRIC PROGRESS NOTE This is a late entry 08/10/2017, covers elements not covered in my initial note 08/10/2017. SUBJECTIVE: I met with the patient in the evening. Previous evening, the patient was somewhat delusional, wanted to call his parents. He did have a nap in the afternoon, was clearer after that. Appetite is fair. REVIEW OF SYSTEMS: No CV, , pulmonary, eye, ENT system symptoms on review. Reliability poor. MENTAL STATUS EXAM: Oriented to himself. Insight, judgment, recent and remote memory, attention, concentration, fund of knowledge poor, consistent with his diagnoses mentioned in my initial note. PLAN: Continue psychotropics from initial note. Marinol has been added for appetite stimulation. Continue Celexa, Seroquel along with Xanax p.r.n., Namenda 10 mg b.i.d., Exelon patch 13.3 mg a day. IMPRESSION: Major neurocognitive disorder, Lewy body with delusion, depression, behavioral disturbance. I have asked the social service staff to make sure the has removed all guns from the home because her plan is to have him return home to her. GABRIEL BAI MD DR: TATIANA/ji JOB#: [id number] / [id number]
--- NOTE | 2017-08-11 14:46 | NUR ---
SW has called and left two messages for pt today regarding discharge plans. SW awaiting return phone call.
--- NOTE | 2017-08-11 15:00 | NUR ---
WEEKLY THERAPEUTIC RECREATION NOTE Date of Admission: 07/31/2017 Date of AT Assessment: 08/03/2017 Goal aimed: Increase his time management and recreation education. Initial goal: To engage in at least 2 groups before discharge Weekly progress towards goal: on track Group participation level: minimal Behaviors observed: sleeps often, enjoys bouncing/ passing ball with others on Wednesday, quiet, difficult to hold attention Plan: no change to goal at this time
--- NOTE | 2017-08-11 15:53 | NUR ---
Behavior Intervention Response and Plan: BIRP Note: Behavior: Assumed Care of patient, patient located in Day Room at shift change. Patient exhibited the following behavior Drowsy, Calm, Disorganized. Brief assessment on rounds of vital signs, medication needs, lab studies, and pain. Treatment plan problems dementia w/ bd and fall risk. Intervention: Patient assessed and the following interventions initiated safety checks 15 Minute Checks Head to toe Assessment , Cognitive Assessment , Medications. Response: After interactions and interventions patient responded in the following manner, Sleeping , Calm ,Compliant. Continue to assess behaviors and condition will continue to monitor throughout the shift as needed. Patient educated on ADL's, and hand hygiene. 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 Continue to assess patient for changes in above assessment. Monitor for medication needs, pain, and safety concerns. Hourly rounding performed to ensure safe environment.
[2017-08-11 17:09] VITALS: BP 94/50
--- NOTE | 2017-08-11 20:51 | PDOC ---
Exam Note: Elmo Note: Please also refer to the separate dictated note~for this date of service dictated separately.~Patient seen individually. Discussed the patient with Nursing staff reviewed the chart.~Reviewed interim history and current functioning. Reviewed vital signs,~Labs/ Radiology~and current medications noted below. Continue current treatment with the changes noted in the dictated addendum note Assessment: Vital Signs: Vital Signs Date Time Temp Pulse Resp B/P (MAP) Pulse Ox O2 Delivery O2 Flow Rate FiO2 08/11/17 17:09 97.5 64 18 94/50 (65) 98 08/10/17 06:29 Room Air I&O Intake and Output 08/11/17 07:00 Intake Total 1380 ml Balance 1380 ml Intake Oral 1380 ml # Voids 1 # Bowel Movements 1 Current Medications: Meds: Current Medications Acetaminophen (Tylenol) 650 mg PRN Q6HRS PRN PO PAIN / TEMP; Start 07/31/17 at 14:00 Multi-Ingredient Ointment (Analgesic [place]) 1 avila PRN QID PRN TP MUSCLE PAIN; Start 07/31/17 at 14:00 Al Hydroxide/Mg Hydroxide (Mylanta Plus Xs) 15 ml PRN AFTMEALHC PRN PO DYSPEPSIA; Start 07/31/17 at 14:00 Magnesium Hydroxide (Milk Of Magnesia) 2,400 mg PRN QHS PRN PO CONSTIPATION Last administered on 08/04/17at 21:38; Start 07/31/17 at 14:00 Carbidopa/Levodopa (Sinemet 25/100) 1 tab PRN QHS PRN PO dystonia Last administered on 08/02/17at 14:48; Start 07/31/17 at 16:15 Citalopram Hydrobromide (CeleXA) 30 mg DAILY PO Last administered on 08/02/17at 08:24; Start 08/01/17 at 09:00; Stop 08/02/17 at 18:13; Status DC Alprazolam (Xanax) 0.25 mg PRN QID PRN PO ANXIETY / AGITATION; Start 07/31/17 at 16:30 Magnesium Oxide (Magnesium Oxide) 400 mg DAILY PO Last administered on at 09:14; Start 08/01/17 at 09:00 Quetiapine Fumarate (SEROquel) 25 mg QHS PO Last administered on 08/03/17at 20: 48; Start 07/31/17 at 21:00; Stop 08/04/17 at 19:05; Status DC Carbidopa/Levodopa (Sinemet Cr) 2.5 tab.sa TID PO Last administered on at 20:36; Start 07/31/17 at 21:00 Olanzapine (ZyPREXA ZYDIS) 2.5 mg PRN Q2HR PRN PO PSYCHOSIS Last administered on 08/07/17at 14:49; Start 07/31/17 at 16:30 Rivastigmine (Exelon) 1 patch DAILY TD Last administered on 08/04/17at 08:34; Start 08/02/17 at 09:00; Stop 08/04/17 at 23:00; Status DC Rivastigmine (Exelon) 1 patch DAILY TD Last administered on 08/08/17at 09:28; Start 08/05/17 at 09:00; Stop 08/08/17 at 09:30; Status DC Sertraline HCl (Zoloft) 50 mg DAILY PO Last administered on 08/03/17at 09:15; Start 08/03/17 at 09:00; Stop 08/03/17 at 17:53; Status DC Citalopram Hydrobromide (CeleXA) 30 mg DAILY PO Last administered on 08/11/17at 09:14; Start 08/04/17 at 09:00 Citalopram Hydrobromide (CeleXA) 30 mg 1X ONCE PO Last administered on at 08:43; Start 08/04/17 at 09:00; Stop 08/04/17 at 09:02; Status DC Quetiapine Fumarate (SEROquel) 50 mg QHS PO Last administered on 08/10/17at 19: 56; Start 08/04/17 at 21:00; Stop 08/11/17 at 18:12; Status DC Memantine (Namenda) 10 mg DAILY PO Last administered on 08/11/17at 09:12; Start 08/05/17 at 09:00 Memantine (Namenda) 5 mg QHS PO Last administered on 08/07/17at 20:01; Start at 21:00; Stop 08/07/17 at 21:01; Status DC Memantine (Namenda) 10 mg QHS PO Last administered on 08/11/17at 20:38; Start at 21:00 Quetiapine Fumarate (SEROquel) 12.5 mg BID@0900,1300 PO Last administered on at 14:00; Start 08/05/17 at 13:00 Rivastigmine (Exelon 13.3mg) 1 patch DAILY TD Last administered on 08/11/17at 09 :14; Start 08/09/17 at 09:00 Dronabinol (Marinol) 2.5 mg DAILY PO Last administered on 08/11/17 09:14; Start 08/08/17 at 09:00 Quetiapine Fumarate (SEROquel) 25 mg QHS PO Last administered on 08/11/17at 20: 36; Start 08/11/17 at 21:00 Active Scripts Active Reported Magnesium Oxide 400 Mg Tablet 400 Mg PO DAILY Sinemet 25-100 Mg Tablet (Carbidopa/Levodopa) 1 Each Tablet 1 Tab PO PRN QHS PRN Seroquel (Quetiapine Fumarate) 25 Mg Tablet 25 Mg PO HS Xanax (Alprazolam) 0.25 Mg Tablet 0.25 Mg PO PRN QID PRN Celexa (Citalopram Hydrobromide) 20 Mg Tablet 30 Mg PO DAILY [carbidopa/levodopa] 50-200 Mg PO TID I have reviewed the current psychotropics carefully including drug interactions. Risk benefit ratio favors no change other than as noted in my dictated progress note. Diagnosis: Problems: (1) Anxiety disorder (2) Dementia in Alzheimer's disease with delusions (3) Dementia in Alzheimer's disease with depression (4) Dementia, vascular, with delusions (5) Dementia, vascular, with depression (6) Impulse control disorder GABRIEL BAI MD Aug 11, 2017 20:51
--- NOTE | 2017-08-12 01:45 | NUR ---
Nursing Note Patient in bedroom during initial interaction. Patient refuses to interact during assessment and medication pass. Patient took medications whole. Patient alert and oriented to self only. Patient remains in bedroom in bed.
[2017-08-12 05:54] VITALS: BP 143/67
[2017-08-12] MEDS: CARBIDOPA/LEVODOPA CR 50/200MG TABLET.SA PO SCH ×3 (10:46→20:29)
[2017-08-12] MEDS: MAGNESIUM OXIDE 400 MG TABLET PO SCH (10:47)
[2017-08-12] MEDS: CITALOPRAM 10 MG TABLET. PO SCH (10:47)
[2017-08-12] MEDS: QUEtiapine 25 MG TABLET. PO SCH ×3 (10:48→20:29)
[2017-08-12] MEDS: RIVASTIGMINE 13.3MG PATCH. TD SCH (10:49)
[2017-08-12] MEDS: MEMANTINE 10 MG TABLET. PO SCH ×2 (10:50→20:29)
[2017-08-12] MEDS: DRONABINOL 2.5 MG CAPSULE PO SCH (10:50)
--- NOTE | 2017-08-12 15:10 | NUR ---
Behavior Intervention Response and Plan: BIRP Note: Behavior: Assumed Care of patient, patient located in Day Room at shift change. Patient exhibited the following behavior Calm, Compliant, Cooperative. Brief assessment on rounds of vital signs, medication needs, lab studies, and pain. Treatment plan problems Dementia w/ BD and fall risk. Intervention: Patient assessed and the following interventions initiated safety checks 15 Minute Checks Head to toe Assessment , Cognitive Assessment , Medications. Response: After interactions and interventions patient responded in the following manner, Calm , Compliant ,Cooperative. Continue to assess behaviors and condition will continue to monitor throughout the shift as needed. Patient educated on ADL's, and hand hygiene. 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 Continue to assess patient for changes in above assessment. Monitor for medication needs, pain, and safety concerns. Hourly rounding performed to ensure safe environment.
[2017-08-12 16:05] VITALS: BP 117/64
--- NOTE | 2017-08-12 20:50 | PDOC ---
Exam Note: Elmo Note: Please also refer to the separate dictated note~for this date of service dictated separately.~Patient seen individually. Discussed the patient with Nursing staff reviewed the chart.~Reviewed interim history and current functioning. Reviewed vital signs,~Labs/ Radiology~and current medications noted below. Continue current treatment with the changes noted in the dictated addendum note Assessment: Vital Signs: Vital Signs Date Time Temp Pulse Resp B/P (MAP) Pulse Ox O2 Delivery O2 Flow Rate FiO2 08/12/17 16:05 97.6 71 16 117/64 (81) 95 08/10/17 06:29 Room Air I&O Intake and Output 08/12/17 07:00 Intake Total 1200 ml Balance 1200 ml Intake Oral 1200 ml # Bowel Movements 1 Current Medications: Meds: Current Medications Acetaminophen (Tylenol) 650 mg PRN Q6HRS PRN PO PAIN / TEMP; Start 07/31/17 at 14:00 Multi-Ingredient Ointment (Analgesic [place]) 1 avila PRN QID PRN TP MUSCLE PAIN; Start 07/31/17 at 14:00 Al Hydroxide/Mg Hydroxide (Mylanta Plus Xs) 15 ml PRN AFTMEALHC PRN PO DYSPEPSIA; Start 07/31/17 at 14:00 Magnesium Hydroxide (Milk Of Magnesia) 2,400 mg PRN QHS PRN PO CONSTIPATION Last administered on 08/04/17at 21:38; Start 07/31/17 at 14:00 Carbidopa/Levodopa (Sinemet 25/100) 1 tab PRN QHS PRN PO dystonia Last administered on 08/02/17at 14:48; Start 07/31/17 at 16:15 Citalopram Hydrobromide (CeleXA) 30 mg DAILY PO Last administered on 08/02/17at 08:24; Start 08/01/17 at 09:00; Stop 08/02/17 at 18:13; Status DC Alprazolam (Xanax) 0.25 mg PRN QID PRN PO ANXIETY / AGITATION; Start 07/31/17 at 16:30 Magnesium Oxide (Magnesium Oxide) 400 mg DAILY PO Last administered on at 10:47; Start 08/01/17 at 09:00 Quetiapine Fumarate (SEROquel) 25 mg QHS PO Last administered on 08/03/17at 20: 48; Start 07/31/17 at 21:00; Stop 08/04/17 at 19:05; Status DC Carbidopa/Levodopa (Sinemet Cr) 2.5 tab.sa TID PO Last administered on at 20:29; Start 07/31/17 at 21:00 Olanzapine (ZyPREXA ZYDIS) 2.5 mg PRN Q2HR PRN PO PSYCHOSIS Last administered on 08/07/17at 14:49; Start 07/31/17 at 16:30 Rivastigmine (Exelon) 1 patch DAILY TD Last administered on 08/04/17at 08:34; Start 08/02/17 at 09:00; Stop 08/04/17 at 23:00; Status DC Rivastigmine (Exelon) 1 patch DAILY TD Last administered on 08/08/17at 09:28; Start 08/05/17 at 09:00; Stop 08/08/17 at 09:30; Status DC Sertraline HCl (Zoloft) 50 mg DAILY PO Last administered on 08/03/17at 09:15; Start 08/03/17 at 09:00; Stop 08/03/17 at 17:53; Status DC Citalopram Hydrobromide (CeleXA) 30 mg DAILY PO Last administered on 08/12/17at 10:47; Start 08/04/17 at 09:00 Citalopram Hydrobromide (CeleXA) 30 mg 1X ONCE PO Last administered on at 08:43; Start 08/04/17 at 09:00; Stop 08/04/17 at 09:02; Status DC Quetiapine Fumarate (SEROquel) 50 mg QHS PO Last administered on 08/10/17at 19: 56; Start 08/04/17 at 21:00; Stop 08/11/17 at 18:12; Status DC Memantine (Namenda) 10 mg DAILY PO Last administered on 08/12/17at 10:50; Start 08/05/17 at 09:00 Memantine (Namenda) 5 mg QHS PO Last administered on 08/07/17at 20:01; Start at 21:00; Stop 08/07/17 at 21:01; Status DC Memantine (Namenda) 10 mg QHS PO Last administered on 08/12/17 20:29; Start at 21:00 Quetiapine Fumarate (SEROquel) 12.5 mg BID@0900,1300 PO Last administered on at 14:46; Start 08/05/17 at 13:00 Rivastigmine (Exelon 13.3mg) 1 patch DAILY TD Last administered on 08/12/17 10 :49; Start 08/09/17 at 09:00 Dronabinol (Marinol) 2.5 mg DAILY PO Last administered on 08/12/17 10:50; Start 08/08/17 at 09:00 Quetiapine Fumarate (SEROquel) 25 mg QHS PO Last administered on 08/12/17 20: 29; Start 08/11/17 at 21:00 Active Scripts Active Reported Magnesium Oxide 400 Mg Tablet 400 Mg PO DAILY Sinemet 25-100 Mg Tablet (Carbidopa/Levodopa) 1 Each Tablet 1 Tab PO PRN QHS PRN Seroquel (Quetiapine Fumarate) 25 Mg Tablet 25 Mg PO HS Xanax (Alprazolam) 0.25 Mg Tablet 0.25 Mg PO PRN QID PRN Celexa (Citalopram Hydrobromide) 20 Mg Tablet 30 Mg PO DAILY [carbidopa/levodopa] 50-200 Mg PO TID I have reviewed the current psychotropics carefully including drug interactions. Risk benefit ratio favors no change other than as noted in my dictated progress note. Diagnosis: Problems: (1) Anxiety disorder (2) Dementia in Alzheimer's disease with delusions (3) Dementia in Alzheimer's disease with depression (4) Dementia, vascular, with delusions (5) Dementia, vascular, with depression (6) Impulse control disorder GABRIEL BAI MD Aug 12, 2017 20:50
[2017-08-13 05:47] VITALS: BP 163/93
[2017-08-13] MEDS: CITALOPRAM 10 MG TABLET. PO SCH (08:41)
[2017-08-13] MEDS: QUEtiapine 25 MG TABLET. PO SCH ×3 (08:41→19:47)
[2017-08-13] MEDS: MAGNESIUM OXIDE 400 MG TABLET PO SCH (08:41)
[2017-08-13] MEDS: MEMANTINE 10 MG TABLET. PO SCH ×2 (08:42→19:47)
[2017-08-13] MEDS: RIVASTIGMINE 13.3MG PATCH. TD SCH (08:43)
[2017-08-13] MEDS: DRONABINOL 2.5 MG CAPSULE PO SCH (08:43)
[2017-08-13] MEDS: CARBIDOPA/LEVODOPA CR 50/200MG TABLET.SA PO SCH ×3 (08:43→19:47)
--- NOTE | 2017-08-13 10:21 | NUR ---
Behavior Intervention Response and Plan: BIRP Note: Behavior: Assumed Care of patient, patient located in Dining Room at shift change. Patient exhibited the following behavior Disorganized, Non Compliant with Meds, Resistive. Brief assessment on rounds of vital signs, medication needs, lab studies, and pain. Treatment plan problems 1-2. Intervention: Patient assessed and the following interventions initiated safety checks 15 Minute Checks Personal Alarm in place , Cognitive Assessment , Head to toe Assessment. Response: After interactions and interventions patient responded in the following manner, Non Compliant with Meds , Drowsy ,Resistive. Continue to assess behaviors and condition will continue to monitor throughout the shift as needed. Patient educated on ADL's, and hand hygiene. Plan: Continue to monitor Master Treatment Plan for patient's progress toward short term goals of Medication Compliance, Improved Mood, nursing home goals to return to previous living setting vs placement. Continue to assess patient for changes in above assessment. Monitor for medication needs, pain, and safety concerns. Hourly rounding performed to ensure safe environment.
--- NOTE | 2017-08-13 13:44 | NUR ---
SW spoke pt , she states she still feels that she will be able to care for him at home. Pt is requesting home health on discharge.
[2017-08-13 16:11] VITALS: BP 90/58
--- NOTE | 2017-08-13 17:34 | PN ---
DATE: 08/11/2017 This late entry, 08/11/2017, covers elements not covered in my initial note. SUBJECTIVE: I met with the patient in the evening and staffed at treatment team meeting with the entire team earlier in the day. The patient's appetite is about 80%, sleeping about 5-3/4 hours at night. 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 when he tipped his wheelchair back. CT head was negative. He has been withdrawn, confused. is concerned about his daytime sedation and feels the bedtime Seroquel dosage should be reduced. REVIEW OF SYSTEMS: No CV, , pulmonary, eye, ENT system symptoms on review. Reliability poor. MENTAL STATUS EXAM: Oriented to himself. Insight, judgment, recent and remote memory, attention, concentration, fund of knowledge poor, consistent with his diagnosis mentioned in my initial note. PLAN: Reduce bedtime Seroquel from 50 mg down to 25 mg. Continue rest unchanged from initial note. MAN Radha BAI MD DR: TATIANA/ji JOB#: [id number] / [id number]
--- NOTE | 2017-08-13 17:41 | NUR ---
Pt non compliant with am medications. Pt playing "possum" refusing to open eyes and answer assessment questions. Pt refused to eat breakfast. Medications administered when visited at the lunch hour.
--- NOTE | 2017-08-13 18:33 | PN ---
DATE: 08/12/2017 This late entry 08/12/2017 covers elements not covered in my initial note. SUBJECTIVE: I met with the patient in the evening. The patient slept 4-1/2 hours previous evening. Remains confused told the nursing staff that he cannot hear and gets more confused as a consequence of this. Quite appropriate with this, wanting to return home, agitated at night, slept in the quiet room, takes his medications whole. Appetite is better on Marinol. REVIEW OF SYSTEMS: No CV, , pulmonary, eye, ENT system symptoms on review. Reliability poor. MENTAL STATUS EXAM: Oriented to himself. Insight, judgment, recent and remote memory, attention, concentration, fund of knowledge poor, consistent with his diagnosis mentioned in my initial note. PLAN: Continue psychotropics from initial note. MAN Radha BAI MD DR: TATIANA/ji JOB#: [id number] / [id number]
--- NOTE | 2017-08-13 20:50 | PDOC ---
Exam Note: Elmo Note: Please also refer to the separate dictated note~for this date of service dictated separately.~Patient seen individually. Discussed the patient with Nursing staff reviewed the chart.~Reviewed interim history and current functioning. Reviewed vital signs,~Labs/ Radiology~and current medications noted below. Continue current treatment with the changes noted in the dictated addendum note Assessment: Vital Signs: Vital Signs Date Time Temp Pulse Resp B/P (MAP) Pulse Ox O2 Delivery O2 Flow Rate FiO2 08/13/17 16:11 97.9 76 18 90/58 (69) 98 08/10/17 06:29 Room Air I&O Intake and Output 08/13/17 07:00 Intake Total 720 ml Balance 720 ml Intake Oral 720 ml Current Medications: Meds: Current Medications Acetaminophen (Tylenol) 650 mg PRN Q6HRS PRN PO PAIN / TEMP; Start 07/31/17 at 14:00 Multi-Ingredient Ointment (Analgesic [place]) 1 avila PRN QID PRN TP MUSCLE PAIN; Start 07/31/17 at 14:00 Al Hydroxide/Mg Hydroxide (Mylanta Plus Xs) 15 ml PRN AFTMEALHC PRN PO DYSPEPSIA; Start 07/31/17 at 14:00 Magnesium Hydroxide (Milk Of Magnesia) 2,400 mg PRN QHS PRN PO CONSTIPATION Last administered on 08/04/17at 21:38; Start 07/31/17 at 14:00 Carbidopa/Levodopa (Sinemet 25/100) 1 tab PRN QHS PRN PO dystonia Last administered on 08/02/17at 14:48; Start 07/31/17 at 16:15 Citalopram Hydrobromide (CeleXA) 30 mg DAILY PO Last administered on 08/02/17at 08:24; Start 08/01/17 at 09:00; Stop 08/02/17 at 18:13; Status DC Alprazolam (Xanax) 0.25 mg PRN QID PRN PO ANXIETY / AGITATION; Start 07/31/17 at 16:30 Magnesium Oxide (Magnesium Oxide) 400 mg DAILY PO Last administered on at 08:41; Start 08/01/17 at 09:00 Quetiapine Fumarate (SEROquel) 25 mg QHS PO Last administered on 08/03/17at 20: 48; Start 07/31/17 at 21:00; Stop 08/04/17 at 19:05; Status DC Carbidopa/Levodopa (Sinemet Cr) 2.5 tab.sa TID PO Last administered on at 19:47; Start 07/31/17 at 21:00 Olanzapine (ZyPREXA ZYDIS) 2.5 mg PRN Q2HR PRN PO PSYCHOSIS Last administered on 08/07/17at 14:49; Start 07/31/17 at 16:30 Rivastigmine (Exelon) 1 patch DAILY TD Last administered on 08/04/17at 08:34; Start 08/02/17 at 09:00; Stop 08/04/17 at 23:00; Status DC Rivastigmine (Exelon) 1 patch DAILY TD Last administered on 08/08/17at 09:28; Start 08/05/17 at 09:00; Stop 08/08/17 at 09:30; Status DC Sertraline HCl (Zoloft) 50 mg DAILY PO Last administered on 08/03/17at 09:15; Start 08/03/17 at 09:00; Stop 08/03/17 at 17:53; Status DC Citalopram Hydrobromide (CeleXA) 30 mg DAILY PO Last administered on 08/13/17at 08:41; Start 08/04/17 at 09:00 Citalopram Hydrobromide (CeleXA) 30 mg 1X ONCE PO Last administered on at 08:43; Start 08/04/17 at 09:00; Stop 08/04/17 at 09:02; Status DC Quetiapine Fumarate (SEROquel) 50 mg QHS PO Last administered on 08/10/17at 19: 56; Start 08/04/17 at 21:00; Stop 08/11/17 at 18:12; Status DC Memantine (Namenda) 10 mg DAILY PO Last administered on 08/13/17at 08:42; Start 08/05/17 at 09:00 Memantine (Namenda) 5 mg QHS PO Last administered on 08/07/17at 20:01; Start at 21:00; Stop 08/07/17 at 21:01; Status DC Memantine (Namenda) 10 mg QHS PO Last administered on 08/13/17 19:47; Start at 21:00 Quetiapine Fumarate (SEROquel) 12.5 mg BID@0900,1300 PO Last administered on at 15:05; Start 08/05/17 at 13:00 Rivastigmine (Exelon 13.3mg) 1 patch DAILY TD Last administered on 08/13/17 08 :43; Start 08/09/17 at 09:00 Dronabinol (Marinol) 2.5 mg DAILY PO Last administered on 08/13/17 08:43; Start 08/08/17 at 09:00 Quetiapine Fumarate (SEROquel) 25 mg QHS PO Last administered on 08/13/17 19: 47; Start 08/11/17 at 21:00 Active Scripts Active Reported Magnesium Oxide 400 Mg Tablet 400 Mg PO DAILY Sinemet 25-100 Mg Tablet (Carbidopa/Levodopa) 1 Each Tablet 1 Tab PO PRN QHS PRN Seroquel (Quetiapine Fumarate) 25 Mg Tablet 25 Mg PO HS Xanax (Alprazolam) 0.25 Mg Tablet 0.25 Mg PO PRN QID PRN Celexa (Citalopram Hydrobromide) 20 Mg Tablet 30 Mg PO DAILY [carbidopa/levodopa] 50-200 Mg PO TID I have reviewed the current psychotropics carefully including drug interactions. Risk benefit ratio favors no change other than as noted in my dictated progress note. Diagnosis: Problems: (1) Anxiety disorder (2) Dementia in Alzheimer's disease with delusions (3) Dementia in Alzheimer's disease with depression (4) Dementia, vascular, with delusions (5) Dementia, vascular, with depression (6) Impulse control disorder GABRIEL BAI MD Aug 13, 2017 20:50
--- NOTE | 2017-08-13 23:41 | NUR ---
Behavior Intervention Response and Plan: BIRP Note: Behavior: Assumed Care of patient, patient located in Day Room at shift change. Patient exhibited the following behavior Calm, Compliant, Cooperative. Brief assessment on rounds of vital signs, medication needs, lab studies, and pain. Treatment plan problems . Intervention: Patient assessed and the following interventions initiated safety checks 15 Minute Checks Personal Alarm in place , Cognitive Assessment , Medications. Response: After interactions and interventions patient responded in the following manner, Calm , Compliant ,Cooperative. Continue to assess behaviors and condition will continue to monitor throughout the shift as needed. Patient educated on ADL's, and hand hygiene. Plan: Continue to monitor Master Treatment Plan for patient's progress toward short term goals of Decreased Agitation, Decreased Anxiety, intermodal truck driver goals to return to previous living setting vs placement. Continue to assess patient for changes in above assessment. Monitor for medication needs, pain, and safety concerns. Hourly rounding performed to ensure safe environment.
[2017-08-14 05:52] VITALS: BP 144/81
[2017-08-14] MEDS: RIVASTIGMINE 13.3MG PATCH. TD SCH (08:29)
[2017-08-14] MEDS: QUEtiapine 25 MG TABLET. PO SCH ×3 (08:30→20:02)
[2017-08-14] MEDS: CITALOPRAM 10 MG TABLET. PO SCH (08:30)
[2017-08-14] MEDS: MEMANTINE 10 MG TABLET. PO SCH ×2 (08:32→20:02)
[2017-08-14] MEDS: DRONABINOL 2.5 MG CAPSULE PO SCH (08:32)
[2017-08-14] MEDS: MAGNESIUM OXIDE 400 MG TABLET PO SCH (08:32)
[2017-08-14] MEDS: CARBIDOPA/LEVODOPA CR 50/200MG TABLET.SA PO SCH ×3 (08:32→20:04)
--- NOTE | 2017-08-14 11:03 | NUR ---
Behavior Intervention Response and Plan: BIRP Note: Behavior: Assumed Care of patient, patient located in Dining Room at shift change. Patient exhibited the following behavior Disorganized, Drowsy, Calm. Brief assessment on rounds of vital signs, medication needs, lab studies, and pain. Treatment plan problems 1-2. Intervention: Patient assessed and the following interventions initiated safety checks 15 Minute Checks Personal Alarm in place , Cognitive Assessment , Head to toe Assessment. Response: After interactions and interventions patient responded in the following manner, Disorganized , Drowsy ,Compliant. Continue to assess behaviors and condition will continue to monitor throughout the shift as needed. Patient educated on ADL's, and hand hygiene. 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 Continue to assess patient for changes in above assessment. Monitor for medication needs, pain, and safety concerns. Hourly rounding performed to ensure safe environment.
[2017-08-14 16:02] VITALS: BP 126/56
[2017-08-14] MEDS ORDERED: traZODone 50 MG TABLET. PO PRN (18:45)
--- NOTE | 2017-08-14 22:48 | PDOC ---
Exam Note: Elmo Note: Please also refer to the separate dictated note~for this date of service dictated separately.~Patient seen individually. Discussed the patient with Nursing staff reviewed the chart.~Reviewed interim history and current functioning. Reviewed vital signs,~Labs/ Radiology~and current medications noted below. Continue current treatment with the changes noted in the dictated addendum note Assessment: Vital Signs: Vital Signs Date Time Temp Pulse Resp B/P (MAP) Pulse Ox O2 Delivery O2 Flow Rate FiO2 08/14/17 16:02 98.0 69 16 126/56 (79) 97 08/10/17 06:29 Room Air I&O Intake and Output 08/14/17 07:00 Intake Total 720 ml Balance 720 ml Intake Oral 720 ml Current Medications: Meds: Current Medications Acetaminophen (Tylenol) 650 mg PRN Q6HRS PRN PO PAIN / TEMP; Start 07/31/17 at 14:00 Multi-Ingredient Ointment (Analgesic [place]) 1 avila PRN QID PRN TP MUSCLE PAIN; Start 07/31/17 at 14:00 Al Hydroxide/Mg Hydroxide (Mylanta Plus Xs) 15 ml PRN AFTMEALHC PRN PO DYSPEPSIA; Start 07/31/17 at 14:00 Magnesium Hydroxide (Milk Of Magnesia) 2,400 mg PRN QHS PRN PO CONSTIPATION Last administered on 08/04/17at 21:38; Start 07/31/17 at 14:00 Carbidopa/Levodopa (Sinemet 25/100) 1 tab PRN QHS PRN PO dystonia Last administered on 08/02/17at 14:48; Start 07/31/17 at 16:15 Citalopram Hydrobromide (CeleXA) 30 mg DAILY PO Last administered on 08/02/17at 08:24; Start 08/01/17 at 09:00; Stop 08/02/17 at 18:13; Status DC Alprazolam (Xanax) 0.25 mg PRN QID PRN PO ANXIETY / AGITATION; Start 07/31/17 at 16:30 Magnesium Oxide (Magnesium Oxide) 400 mg DAILY PO Last administered on at 08:32; Start 08/01/17 at 09:00 Quetiapine Fumarate (SEROquel) 25 mg QHS PO Last administered on 08/03/17at 20: 48; Start 07/31/17 at 21:00; Stop 08/04/17 at 19:05; Status DC Carbidopa/Levodopa (Sinemet Cr) 2.5 tab.sa TID PO Last administered on at 20:04; Start 07/31/17 at 21:00 Olanzapine (ZyPREXA ZYDIS) 2.5 mg PRN Q2HR PRN PO PSYCHOSIS Last administered on 08/07/17at 14:49; Start 07/31/17 at 16:30 Rivastigmine (Exelon) 1 patch DAILY TD Last administered on 08/04/17at 08:34; Start 08/02/17 at 09:00; Stop 08/04/17 at 23:00; Status DC Rivastigmine (Exelon) 1 patch DAILY TD Last administered on 08/08/17at 09:28; Start 08/05/17 at 09:00; Stop 08/08/17 at 09:30; Status DC Sertraline HCl (Zoloft) 50 mg DAILY PO Last administered on 08/03/17at 09:15; Start 08/03/17 at 09:00; Stop 08/03/17 at 17:53; Status DC Citalopram Hydrobromide (CeleXA) 30 mg DAILY PO Last administered on 08/14/17at 08:30; Start 08/04/17 at 09:00 Citalopram Hydrobromide (CeleXA) 30 mg 1X ONCE PO Last administered on at 08:43; Start 08/04/17 at 09:00; Stop 08/04/17 at 09:02; Status DC Quetiapine Fumarate (SEROquel) 50 mg QHS PO Last administered on 08/10/17at 19: 56; Start 08/04/17 at 21:00; Stop 08/11/17 at 18:12; Status DC Memantine (Namenda) 10 mg DAILY PO Last administered on 08/14/17at 08:32; Start 08/05/17 at 09:00 Memantine (Namenda) 5 mg QHS PO Last administered on 08/07/17at 20:01; Start at 21:00; Stop 08/07/17 at 21:01; Status DC Memantine (Namenda) 10 mg QHS PO Last administered on 08/14/17 20:02; Start at 21:00 Quetiapine Fumarate (SEROquel) 12.5 mg BID@0900,1300 PO Last administered on at 12:44; Start 08/05/17 at 13:00; Stop 08/14/17 at 18:39; Status DC Rivastigmine (Exelon 13.3mg) 1 patch DAILY TD Last administered on 08/14/17at 08 :29; Start 08/09/17 at 09:00 Dronabinol (Marinol) 2.5 mg DAILY PO Last administered on 08/14/17at 08:32; Start 08/08/17 at 09:00 Quetiapine Fumarate (SEROquel) 25 mg QHS PO Last administered on 08/14/17at 20: 02; Start 08/11/17 at 21:00 Trazodone HCl (Desyrel) 25 mg PRN QHS PRN PO INSOMNIA; Start 08/14/17 at 18:45 Active Scripts Active Reported Magnesium Oxide 400 Mg Tablet 400 Mg PO DAILY Sinemet 25-100 Mg Tablet (Carbidopa/Levodopa) 1 Each Tablet 1 Tab PO PRN QHS PRN Seroquel (Quetiapine Fumarate) 25 Mg Tablet 25 Mg PO HS Xanax (Alprazolam) 0.25 Mg Tablet 0.25 Mg PO PRN QID PRN Celexa (Citalopram Hydrobromide) 20 Mg Tablet 30 Mg PO DAILY [carbidopa/levodopa] 50-200 Mg PO TID I have reviewed the current psychotropics carefully including drug interactions. Risk benefit ratio favors no change other than as noted in my dictated progress note. Diagnosis: Problems: (1) Anxiety disorder (2) Dementia in Alzheimer's disease with delusions (3) Dementia in Alzheimer's disease with depression (4) Dementia, vascular, with delusions (5) Dementia, vascular, with depression (6) Impulse control disorder GABRIEL BAI MD Aug 14, 2017 22:48
[2017-08-15 06:28] VITALS: BP 156/83
--- NOTE | 2017-08-15 06:28 | RAD ---
EXAM: ANKLE RIGHT 3V. HISTORY: Right lateral ankle pain/swelling. COMPARISON: None. FINDINGS: There is soft tissue swelling laterally greater than medially. The distal leg is also involved. No fractures are identified. The joint spaces and alignment of the mortise are maintained. Atherosclerotic calcifications are noted. There is a small plantar calcaneal spur. IMPRESSION: 1. Soft tissue swelling/edema. No fracture or malalignment. Electronically signed by: Luke Hackett MD (08/15/2017 6:25 AM) [email or web address]
[2017-08-15 08:17] LABS: BASO % 0 % (0-3); EOS # 0.1 x10^3/uL (0.0-0.7); EOS % 2 % (0-3); HEMOGLOBIN 13.8 g/dL (13.0-17.5); LYMPH % 16 % (24-48); MEAN CORPUSCULAR HEMOGLOBIN 28 pg (25-35); MEAN CORPUSCULAR HGB CONC 34 g/dL (31-37); MEAN CORPUSCULAR VOLUME 84 fL (79-100); MONO # 0.4 x10^3/uL (0.0-1.1); MONO % 7 % (0-9); NEUT # 4.5 x10^3uL (1.8-7.7); NEUT % 75 % (31-73); PLATELET COUNT 279 x10^3/uL (140-400); RED BLOOD COUNT 4.87 x10^6/uL (4.30-5.70); RED CELL DISTRIBUTION WIDTH 16.4 % (11.5-14.5); WHITE BLOOD COUNT 6.1 x10^3/uL (4.0-11.0)
[2017-08-15 08:28] LABS: ALBUMIN 3.3 g/dL (3.4-5.0); ALBUMIN/GLOBULIN RATIO 0.9 (1.0-1.7); CALCIUM 8.9 mg/dL (8.5-10.1); CREATININE 0.9 mg/dL (0.7-1.3); GFR 80.4; TOTAL PROTEIN 7.1 g/dL (6.4-8.2)
[2017-08-15] MEDS: MAGNESIUM OXIDE 400 MG TABLET PO SCH (08:40)
[2017-08-15] MEDS: CARBIDOPA/LEVODOPA CR 50/200MG TABLET.SA PO SCH ×3 (08:41→19:55)
[2017-08-15] MEDS: RIVASTIGMINE 13.3MG PATCH. TD SCH (08:41)
[2017-08-15] MEDS: DRONABINOL 2.5 MG CAPSULE PO SCH (08:41)
[2017-08-15] MEDS: CITALOPRAM 10 MG TABLET. PO SCH (08:41)
[2017-08-15] MEDS: MEMANTINE 10 MG TABLET. PO SCH ×2 (08:41→19:56)
--- NOTE | 2017-08-15 10:40 | NUR ---
Behavior Intervention Response and Plan: BIRP Note: Behavior: Assumed Care of patient, patient located in Dining Room at shift change. Patient exhibited the following behavior Disorganized, Non Compliant with Meds, Non Compliant. Brief assessment on rounds of vital signs, medication needs, lab studies, and pain. Treatment plan problems 1-2. Intervention: Patient assessed and the following interventions initiated safety checks 15 Minute Checks Personal Alarm in place , Cognitive Assessment , Head to toe Assessment. Response: After interactions and interventions patient responded in the following manner, Disorganized , Calm ,Non Compliant. Continue to assess behaviors and condition will continue to monitor throughout the shift as needed. Patient educated on ADL's, and hand hygiene. 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 Continue to assess patient for changes in above assessment. Monitor for medication needs, pain, and safety concerns. Hourly rounding performed to ensure safe environment.
[2017-08-15 16:15] VITALS: BP 125/61
--- NOTE | 2017-08-15 18:04 | PN ---
DATE: 08/13/2017 PSYCHIATRIC PROGRESS NOTE This is a late entry, 08/13/2017, covers elements not covered in my initial note. SUBJECTIVE: I met with the patient in the evening. The patient slept 7-3/4 hours previous evening. In the morning, he refused to open his eyes, refused breakfast, somewhat sedated. REVIEW OF SYSTEMS: No CV, , pulmonary, eye, ENT system symptoms on review. Gait unsteady, but per nursing report, it was unsteady even at admission, even though it was with a walker and wheelchair intermittently. MENTAL STATUS EXAM: Oriented to himself. Insight, judgment, recent and remote memory, attention, concentration, fund of knowledge poor, consistent with his diagnosis. I had to sit with him and talk loudly into his left ear to communicate with him. IMPRESSION: Unchanged from initial note. PLAN: Continue current psychotropics, but if daytime sedation persists, we will stop the daytime Seroquel. MAN Radha BAI MD DR: TATIANA/ji JOB#: [id number] / [id number]
[2017-08-15] MEDS: QUEtiapine 25 MG TABLET. PO SCH (19:55)
--- NOTE | 2017-08-15 20:00 | NUR ---
Behavior Intervention Response and Plan: BIRP Note: Behavior: Assumed Care of patient, patient located in Day Room at shift change. Patient exhibited the following behavior Calm, Compliant, Able to Focus on Task. Brief assessment on rounds of vital signs, medication needs, lab studies, and pain. Treatment plan problems . Intervention: Patient assessed and the following interventions initiated safety checks 15 Minute Checks Cognitive Assessment , Head to toe Assessment , Medications. Response: After interactions and interventions patient responded in the following manner, Cooperative , Interactive ,Social. Continue to assess behaviors and condition will continue to monitor throughout the shift as needed. Patient educated on ADL's, and hand hygiene. 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 Continue to assess patient for changes in above assessment. Monitor for medication needs, pain, and safety concerns. Hourly rounding performed to ensure safe environment.
--- NOTE | 2017-08-15 20:57 | PDOC ---
Exam Note: Elmo Note: Please also refer to the separate dictated note~for this date of service dictated separately.~Patient seen individually. Discussed the patient with Nursing staff reviewed the chart.~Reviewed interim history and current functioning. Reviewed vital signs,~Labs/ Radiology~and current medications noted below. Continue current treatment with the changes noted in the dictated addendum note Assessment: Vital Signs: Vital Signs Date Time Temp Pulse Resp B/P (MAP) Pulse Ox O2 Delivery O2 Flow Rate FiO2 08/15/17 16:15 97.4 72 19 125/61 (82) 96 08/10/17 06:29 Room Air I&O Intake and Output 08/15/17 07:00 Intake Total 820 ml Balance 820 ml Intake Oral 820 ml # Voids 1 # Bowel Movements 1 Labs: Laboratory Tests Test 08/15/17 08:00 White Blood Count 6.1 x10^3/uL (4.0-11.0) Red Blood Count 4.87 x10^6/uL (4.30-5.70) Hemoglobin 13.8 g/dL (13.0-17.5) Hematocrit 41.0 % (39.0-53.0) Mean Corpuscular Volume 84 fL (79-100) Mean Corpuscular Hemoglobin 28 pg (25-35) Mean Corpuscular Hemoglobin Concent 34 g/dL (31-37) Red Cell Distribution Width 16.4 % (11.5-14.5) H Platelet Count 279 x10^3/uL (140-400) Neutrophils (%) (Auto) 75 % (31-73) H Lymphocytes (%) (Auto) 16 % (24-48) L Monocytes (%) (Auto) 7 % (0-9) Eosinophils (%) (Auto) 2 % (0-3) Basophils (%) (Auto) 0 % (0-3) Neutrophils # (Auto) 4.5 x10^3uL (1.8-7.7) Lymphocytes # (Auto) 1.0 x10^3/uL (1.0-4.8) Monocytes # (Auto) 0.4 x10^3/uL (0.0-1.1) Eosinophils # (Auto) 0.1 x10^3/uL (0.0-0.7) Basophils # (Auto) 0.0 x10^3/uL (0.0-0.2) Sodium Level 135 mmol/L (136-145) L Potassium Level 4.0 mmol/L (3.5-5.1) Chloride Level 99 mmol/L (98-107) Carbon Dioxide Level 32 mmol/L (21-32) Anion Gap 4 (6-14) L Blood Urea Nitrogen 38 mg/dL (8-26) H Creatinine 0.9 mg/dL (0.7-1.3) Estimated GFR (Cockcroft-Gault) 80.4 BUN/Creatinine Ratio 42 (6-20) H Glucose Level 90 mg/dL (70-99) Calcium Level 8.9 mg/dL (8.5-10.1) Total Bilirubin 1.0 mg/dL (0.2-1.0) Aspartate Amino Transferase (AST) 12 U/L (15-37) L Alanine Aminotransferase (ALT) 8 U/L (16-63) L Alkaline Phosphatase 78 U/L (46-116) Total Protein 7.1 g/dL (6.4-8.2) Albumin 3.3 g/dL (3.4-5.0) L Albumin/Globulin Ratio 0.9 (1.0-1.7) L Current Medications: Meds: Current Medications Acetaminophen (Tylenol) 650 mg PRN Q6HRS PRN PO PAIN / TEMP; Start 07/31/17 at 14:00 Multi-Ingredient Ointment (Analgesic [place]) 1 avila PRN QID PRN TP MUSCLE PAIN; Start 07/31/17 at 14:00 Al Hydroxide/Mg Hydroxide (Mylanta Plus Xs) 15 ml PRN AFTMEALHC PRN PO DYSPEPSIA; Start 07/31/17 at 14:00 Magnesium Hydroxide (Milk Of Magnesia) 2,400 mg PRN QHS PRN PO CONSTIPATION Last administered on 08/04/17at 21:38; Start 07/31/17 at 14:00 Carbidopa/Levodopa (Sinemet 25/100) 1 tab PRN QHS PRN PO dystonia Last administered on 08/02/17at 14:48; Start 07/31/17 at 16:15 Citalopram Hydrobromide (CeleXA) 30 mg DAILY PO Last administered on 08/02/17at 08:24; Start 08/01/17 at 09:00; Stop 08/02/17 at 18:13; Status DC Alprazolam (Xanax) 0.25 mg PRN QID PRN PO ANXIETY / AGITATION; Start 07/31/17 at 16:30 Magnesium Oxide (Magnesium Oxide) 400 mg DAILY PO Last administered on at 08:40; Start 08/01/17 at 09:00 Quetiapine Fumarate (SEROquel) 25 mg QHS PO Last administered on 08/03/17at 20: 48; Start 07/31/17 at 21:00; Stop 08/04/17 at 19:05; Status DC Carbidopa/Levodopa (Sinemet Cr) 2.5 tab.sa TID PO Last administered on at 19:55; Start 07/31/17 at 21:00 Olanzapine (ZyPREXA ZYDIS) 2.5 mg PRN Q2HR PRN PO PSYCHOSIS Last administered on 08/07/17at 14:49; Start 07/31/17 at 16:30 Rivastigmine (Exelon) 1 patch DAILY TD Last administered on 08/04/17at 08:34; Start 08/02/17 at 09:00; Stop 08/04/17 at 23:00; Status DC Rivastigmine (Exelon) 1 patch DAILY TD Last administered on 08/08/17at 09:28; Start 08/05/17 at 09:00; Stop 08/08/17 at 09:30; Status DC Sertraline HCl (Zoloft) 50 mg DAILY PO Last administered on 08/03/17at 09:15; Start 08/03/17 at 09:00; Stop 08/03/17 at 17:53; Status DC Citalopram Hydrobromide (CeleXA) 30 mg DAILY PO Last administered on 08/15/17at 08:41; Start 08/04/17 at 09:00 Citalopram Hydrobromide (CeleXA) 30 mg 1X ONCE PO Last administered on at 08:43; Start 08/04/17 at 09:00; Stop 08/04/17 at 09:02; Status DC Quetiapine Fumarate (SEROquel) 50 mg QHS PO Last administered on 08/10/17at 19: 56; Start 08/04/17 at 21:00; Stop 08/11/17 at 18:12; Status DC Memantine (Namenda) 10 mg DAILY PO Last administered on 08/15/17 08:41; Start 08/05/17 at 09:00 Memantine (Namenda) 5 mg QHS PO Last administered on 08/07/17at 20:01; Start at 21:00; Stop 08/07/17 at 21:01; Status DC Memantine (Namenda) 10 mg QHS PO Last administered on 08/15/17at 19:56; Start at 21:00 Quetiapine Fumarate (SEROquel) 12.5 mg BID@0900,1300 PO Last administered on at 12:44; Start 08/05/17 at 13:00; Stop 08/14/17 at 18:39; Status DC Rivastigmine (Exelon 13.3mg) 1 patch DAILY TD Last administered on 08/15/17at 08 :41; Start 08/09/17 at 09:00 Dronabinol (Marinol) 2.5 mg DAILY PO Last administered on 08/15/17at 08:41; Start 08/08/17 at 09:00 Quetiapine Fumarate (SEROquel) 25 mg QHS PO Last administered on 08/15/17at 19: 55; Start 08/11/17 at 21:00 Trazodone HCl (Desyrel) 25 mg PRN QHS PRN PO INSOMNIA; Start 08/14/17 at 18:45 Active Scripts Active Reported Magnesium Oxide 400 Mg Tablet 400 Mg PO DAILY Sinemet 25-100 Mg Tablet (Carbidopa/Levodopa) 1 Each Tablet 1 Tab PO PRN QHS PRN Seroquel (Quetiapine Fumarate) 25 Mg Tablet 25 Mg PO HS Xanax (Alprazolam) 0.25 Mg Tablet 0.25 Mg PO PRN QID PRN Celexa (Citalopram Hydrobromide) 20 Mg Tablet 30 Mg PO DAILY [carbidopa/levodopa] 50-200 Mg PO TID I have reviewed the current psychotropics carefully including drug interactions. Risk benefit ratio favors no change other than as noted in my dictated progress note. Diagnosis: Problems: (1) Anxiety disorder (2) Dementia in Alzheimer's disease with delusions (3) Dementia in Alzheimer's disease with depression (4) Dementia, vascular, with delusions (5) Dementia, vascular, with depression (6) Impulse control disorder GABRIEL BAI MD Aug 15, 2017 20:57
--- NOTE | 2017-08-15 22:52 | PN ---
DATE: 08/14/2017 This is a late entry for 08/14/2017 covers elements not covered in my initial note. SUBJECTIVE: I met with the patient in the evening. Previous evening, the patient was somewhat ignoring staff, keeping his eyes closed. He was restless, up at 03:30 a.m., took his medications. is concerned about him keeping his eyes closed during the day and we will stop the daytime Seroquel 12.5 mg b.i.d. to compensate for this. REVIEW OF SYSTEMS: No CV, , pulmonary, eye, ENT system symptoms on review. Gait unsteady, in wheelchair. MENTAL STATUS EXAM: Oriented to himself. Insight, judgment, recent and remote memory, attention, concentration, fund of knowledge poor, consistent with his diagnosis mentioned in my initial note. PLAN: Start trazodone 25 mg at bedtime p.r.n. Stop the daytime Seroquel 12.5 mg b.i.d. Continue rest unchanged. MAN Radha BAI MD DR: TATIANA/ji JOB#: [id number] / [id number]
--- NOTE | 2017-08-15 23:30 | PN ---
DATE: 08/15/2017 PSYCHIATRIC PROGRESS NOTE This note covers elements, not covered in my initial note. SUBJECTIVE: The patient slept 8 hours previous evening. He has been keeping his eyes open, less sedated since daytime Seroquel was stopped. REVIEW OF SYSTEMS: Ambulation impaired, in wheelchair. No CV, , pulmonary, eye, ENT system symptoms on review. MENTAL STATUS EXAM: Oriented to himself. Insight, judgment, recent and remote memory, attention, concentration, fund of knowledge poor, consistent with his diagnosis mentioned in my initial note. PLAN: Continue current psychotropics. Adjust further as clinically indicated. MAN Radha BAI MD DR: TATIANA/ji JOB#: [id number] / [id number]
[2017-08-16] MEDS ORDERED: ACET500T68 PO (00:22)
[2017-08-16] MEDS ORDERED: DRON2.5C PO (00:24)
[2017-08-16] MEDS ORDERED: MAG30ORA2 PO (00:26)
[2017-08-16] MEDS ORDERED: MEMA10TA PO (00:27)
[2017-08-16] MEDS ORDERED: MAGN400O7 PO (00:27)
[2017-08-16] MEDS ORDERED: METH29OI TP (00:29)
[2017-08-16] MEDS ORDERED: OLAN5TAB5 PO (00:30)
[2017-08-16] MEDS ORDERED: RIVA1PAT5 TD (00:34)
[2017-08-16] MEDS ORDERED: TRAZ50TA15 PO (00:35)
[2017-08-16] MEDS ORDERED: CARB1TAB5 PO (00:39)
[2017-08-16 06:01] VITALS: BP 135/87
--- NOTE | 2017-08-16 10:00 | NUR ---
Behavior Intervention Response and Plan: BIRP Note: Behavior: Assumed Care of patient, patient located in Day Room at shift change. Patient exhibited the following behavior Calm, Compliant, Cooperative. Brief assessment on rounds of vital signs, medication needs, lab studies, and pain. Treatment plan problems dementia w/ Bd and fall risk. Intervention: Patient assessed and the following interventions initiated safety checks 15 Minute Checks Head to toe Assessment , Cognitive Assessment , Medications. Response: After interactions and interventions patient responded in the following manner, Calm , Compliant ,Cooperative. Continue to assess behaviors and condition will continue to monitor throughout the shift as needed. Patient educated on ADL's, and hand hygiene. Plan: Continue to monitor Master Treatment Plan for patient's progress toward short term goals of Decreased Agitation, Improved Mood, shake feeder goals to return to previous living setting vs placement. Continue to assess patient for changes in above assessment. Monitor for medication needs, pain, and safety concerns. Hourly rounding performed to ensure safe environment.
[2017-08-16] MEDS: MEMANTINE 10 MG TABLET. PO SCH (10:19)
[2017-08-16] MEDS: CITALOPRAM 10 MG TABLET. PO SCH (10:19)
[2017-08-16] MEDS: DRONABINOL 2.5 MG CAPSULE PO SCH (10:19)
[2017-08-16] MEDS: CARBIDOPA/LEVODOPA CR 50/200MG TABLET.SA PO SCH ×3 (10:19→13:37)
[2017-08-16] MEDS: MAGNESIUM OXIDE 400 MG TABLET PO SCH (10:19)
[2017-08-16] MEDS: RIVASTIGMINE 13.3MG PATCH. TD SCH (10:21)
--- NOTE | 2017-08-16 10:40 | NUR ---
[facility] Social Work Discharge Planning Form Patient Name KVNG CLAY Admit Date: 07/31/17 DISCHARGE PLAN Discharge Destination: return home Transportation: Lynda, , to [employer] and pack[employer] 08/16/17 @ 12:30 Special Instructions/Notes: Please fax dc summary to PCP, meds to Home Health DISCHARGE TO HOME: Address: [address] [place] [id number] Responsible Democrat: [facility]acy: [facility] [place], [place] PHONE: [phone] Primary Care Follow Up: Dr. Luisa Lock [address] [address] PHONE: [phone] FAX: [phone] Follow up Appointment scheduled for Wednesday, August 27, 2017 @ 2:00pm Home Health: [facility] PHONE: [phone] ext [phone] FAX: [phone] They will call you on Wednesday to arrange for an in-home appointment for initial evaluation for Physical and Occupational Therapy Services
--- NOTE | 2017-08-16 10:56 | NUR ---
SW received message from Nursing that pt's is requesting pt dc home today w/ HH services. Mirian contacted pt's , Lynda, to clarify dc plans. Lynda [facility] [place], [place] and Dr. Luisa Lock is pt's PCP. She will be at this facility at lunch to assist pt in eating and will take him home once lunch is finished. SW faxed referral to [facility] and will wait for Agency to accept pt. orders and face to face will be completed by Dr. Morales upon pt's acceptance.
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
--- NOTE | 2017-08-16 13:00 | NUR ---
Transition Record was faxed to follow-up provider with the following elements: Reason for admission, procedures, tests, principal diagnosis, pending studies, patient instructions, 14/09 contact information for unit, phone number to obtain pending test results, plan for follow-up care, physician follow-up, advanced directive information, and medication list with dose, duration and instructions. This information was included in the following documents: History and physical, lab results, study results, progress notes, social work planning form, DC instruction form, patient visit summary, and medication reconciliation form. Date & time record faxed: 08/16/17, [address] Lock @ [phone] Record faxed to: Dr. Luisa Lock Record discussed with/ report given to: Patient's Lynda and faxed to Dr. Luisa Lock's office w/ reply received.
--- NOTE | 2017-08-16 18:29 | PDOC ---
Exam Note: Elmo Note: Please also refer to the separate dictated note~for this date of service dictated separately.~Patient seen individually. Discussed the patient with Nursing staff reviewed the chart.~Reviewed interim history and current functioning. Reviewed vital signs,~Labs/ Radiology~and current medications noted below. Continue current treatment with the changes noted in the dictated addendum note Assessment: Vital Signs: Vital Signs Date Time Temp Pulse Resp B/P (MAP) Pulse Ox O2 Delivery O2 Flow Rate FiO2 08/16/17 06:01 97.7 66 16 135/87 (103) 99 Room Air I&O Intake and Output 08/16/17 07:01 Intake Total 960 ml Balance 960 ml Intake Oral 960 ml Current Medications: Meds: Current Medications Acetaminophen (Tylenol) 650 mg PRN Q6HRS PRN PO PAIN / TEMP; Start 07/31/17 at 14:00; Stop 08/16/17 at 14:16; Status DC Multi-Ingredient Ointment (Analgesic [place]) 1 danyell PRN QID PRN TP MUSCLE PAIN; Start 07/31/17 at 14:00; Stop 08/16/17 at 14:16; Status DC Al Hydroxide/Mg Hydroxide (Mylanta Plus Xs) 15 ml PRN AFTMEALHC PRN PO DYSPEPSIA; Start 07/31/17 at 14:00; Stop 08/16/17 at 14:16; Status DC Magnesium Hydroxide (Milk Of Magnesia) 2,400 mg PRN QHS PRN PO CONSTIPATION Last administered on 08/04/17at 21:38; Start 07/31/17 at 14:00; Stop 08/16/17 at 14:16; Status DC Carbidopa/Levodopa (Sinemet 25/100) 1 tab PRN QHS PRN PO dystonia Last administered on 08/02/17at 14:48; Start 07/31/17 at 16:15; Stop 08/16/17 at 14:16 ; Status DC Citalopram Hydrobromide (CeleXA) 30 mg DAILY PO Last administered on 08/02/17at 08:24; Start 08/01/17 at 09:00; Stop 08/02/17 at 18:13; Status DC Alprazolam (Xanax) 0.25 mg PRN QID PRN PO ANXIETY / AGITATION; Start 07/31/17 at 16:30; Stop 08/16/17 at 14:16; Status DC Magnesium Oxide (Magnesium Oxide) 400 mg DAILY PO Last administered on at 10:19; Start 08/01/17 at 09:00; Stop 08/16/17 at 14:16; Status DC Quetiapine Fumarate (SEROquel) 25 mg QHS PO Last administered on 08/03/17at 20: 48; Start 07/31/17 at 21:00; Stop 08/04/17 at 19:05; Status DC Carbidopa/Levodopa (Sinemet Cr) 2.5 tab.sa TID PO Last administered on at 10:19; Start 07/31/17 at 21:00; Stop 08/16/17 at 14:16; Status DC Olanzapine (ZyPREXA ZYDIS) 2.5 mg PRN Q2HR PRN PO PSYCHOSIS Last administered on 08/07/17at 14:49; Start 07/31/17 at 16:30; Stop 08/16/17 at 14:16; Status DC Rivastigmine (Exelon) 1 patch DAILY TD Last administered on 08/04/17at 08:34; Start 08/02/17 at 09:00; Stop 08/04/17 at 23:00; Status DC Rivastigmine (Exelon) 1 patch DAILY TD Last administered on 08/08/17at 09:28; Start 08/05/17 at 09:00; Stop 08/08/17 at 09:30; Status DC Sertraline HCl (Zoloft) 50 mg DAILY PO Last administered on 08/03/17at 09:15; Start 08/03/17 at 09:00; Stop 08/03/17 at 17:53; Status DC Citalopram Hydrobromide (CeleXA) 30 mg DAILY PO Last administered on 08/16/17at 10:19; Start 08/04/17 at 09:00; Stop 08/16/17 at 14:16; Status DC Citalopram Hydrobromide (CeleXA) 30 mg 1X ONCE PO Last administered on at 08:43; Start 08/04/17 at 09:00; Stop 08/04/17 at 09:02; Status DC Quetiapine Fumarate (SEROquel) 50 mg QHS PO Last administered on 08/10/17at 19: 56; Start 08/04/17 at 21:00; Stop 08/11/17 at 18:12; Status DC Memantine (Namenda) 10 mg DAILY PO Last administered on 08/16/17at 10:19; Start 08/05/17 at 09:00; Stop 08/16/17 at 14:16; Status DC Memantine (Namenda) 5 mg QHS PO Last administered on 08/07/17at 20:01; Start at 21:00; Stop 08/07/17 at 21:01; Status DC Memantine (Namenda) 10 mg QHS PO Last administered on 08/15/17at 19:56; Start at 21:00; Stop 08/16/17 at 14:16; Status DC Quetiapine Fumarate (SEROquel) 12.5 mg BID@0900,1300 PO Last administered on at 12:44; Start 08/05/17 at 13:00; Stop 08/14/17 at 18:39; Status DC Rivastigmine (Exelon 13.3mg) 1 patch DAILY TD Last administered on 08/16/17at 10 :21; Start 08/09/17 at 09:00; Stop 08/16/17 at 14:16; Status DC Dronabinol (Marinol) 2.5 mg DAILY PO Last administered on 08/16/17at 10:19; Start 08/08/17 at 09:00; Stop 08/16/17 at 14:16; Status DC Quetiapine Fumarate (SEROquel) 25 mg QHS PO Last administered on 08/15/17at 19: 55; Start 08/11/17 at 21:00; Stop 08/16/17 at 14:16; Status DC Trazodone HCl (Desyrel) 25 mg PRN QHS PRN PO INSOMNIA; Start 08/14/17 at 18:45 ; Stop 08/16/17 at 14:16; Status DC Active Scripts Active Reported Sinemet Cr 50-200 Tablet (Carbidopa/Levodopa) 1 Each Tablet.er 2.5 Tab.sr PO TID Trazodone Hcl 50 Mg Tablet 25 Mg PO PRN QHS PRN EXELON 13.3mg/24hr (Rivastigmine) 1 Each Patch.td24 1 Patch TD DAILY Zyprexa Zydis (Olanzapine) 5 Mg Tab.rapdis 2.5 Mg PO PRN Q2HR PRN Analgesic [place] (Methyl Salicylate/Menthol) 28 Gm Oint...g. 1 Danyell TP PRN QID Namenda (Memantine Hcl) 10 Mg Tablet 10 Mg PO BID Milk Of Magnesia (Magnesium Hydroxide) 400 Mg/5 Ml Oral.susp 2,400 Mg PO PRN DAILY PRN Mag-Al Plus Xs Suspension (Mag Hydrox/Al Hydrox/Simeth) 30 Ml Oral.susp 15 Ml PO PRN AFTMEALHC PRN Marinol (Dronabinol) 2.5 Mg Capsule 2.5 Mg PO DAILY Acetaminophen 500 Mg Tablet 650 Mg PO PRN Q6HRS PRN Magnesium Oxide 400 Mg Tablet 400 Mg PO DAILY Sinemet 25-100 Mg Tablet (Carbidopa/Levodopa) 1 Each Tablet 1 Tab PO PRN QHS PRN Seroquel (Quetiapine Fumarate) 25 Mg Tablet 25 Mg PO HS Xanax (Alprazolam) 0.25 Mg Tablet 0.25 Mg PO PRN QID PRN Celexa (Citalopram Hydrobromide) 20 Mg Tablet 30 Mg PO DAILY I have reviewed the current psychotropics carefully including drug interactions. Risk benefit ratio favors no change other than as noted in my dictated progress note. Diagnosis: Problems: (1) Impulse control disorder (2) Dementia, vascular, with depression (3) Dementia, vascular, with delusions (4) Dementia in Alzheimer's disease with depression (5) Dementia in Alzheimer's disease with delusions (6) Anxiety disorder GABRIEL BAI MD Aug 16, 2017 18:29
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
== END 2017-08-16 13:00 | disposition home health service (06) | DRG 57 ==
LOC: EEVIPCON 11:44 → GEROPSY 11:44
PROVIDERS: ADMIT Psychiatry & Neurology Psychiatry; ATTEND Psychiatry & Neurology Psychiatry
DX: G30.9 Alzheimer's disease, unspecified (principal); F01.51 Vascular dementia, unspecified severity, with behavioral disturbance; F02.81 Dementia in other diseases classified elsewhere, unspecified severity, with behavioral disturbance; I10 Essential (primary) hypertension; F32.9 Major depressive disorder, single episode, unspecified; F41.9 Anxiety disorder, unspecified; F63.9 Impulse disorder, unspecified; G31.83 Neurocognitive disorder with Lewy bodies; G47.00 Insomnia, unspecified; K59.09 Other constipation; X58.XXXA Exposure to other specified factors, initial encounter; R13.10 Dysphagia, unspecified; S00.10XA Contusion of unspecified eyelid and periocular area, initial encounter; Z79.899 Other long term (current) drug therapy; Y93.89 Activity, other specified; Y92.89 Other specified places as the place of occurrence of the external cause; Y99.8 Other external cause status; Z91.83 Wandering in diseases classified elsewhere
CPT/HCPCS: 36415; 70450; 73610; 80053; 80061; 81001; 82306; 82607; 83036; 83540; 83550; 83735; 84436; 84443; 84480; 85025; 86592; 93005; Q0167